=== PATIENT | male | born 1935 | race Asian ===

== ENCOUNTER → 2016-09-05 | Outpatient (CLI) | payer OTHER | LOC: CIMAGING 14:30 | PROVIDERS: ATTEND Family Medicine | DX: M25.511 Pain in right shoulder (principal); M19.011 Primary osteoarthritis, right shoulder | CPT/HCPCS: 73030-PO ==

== ENCOUNTER 2017-01-27 09:07 | Inpatient (IN) | payer OTHER, MEDICAID ==
[2017-01-27] MEDS ORDERED: NS 1,000 ML IV ONE (09:23)
--- NOTE | 2017-01-27 09:32 | CPEKG ---
Heart Rate: 69 RR Interval: 870 P-R Interval: 180 QRSD Interval: 86 QT Interval: 424 QTC Interval: 455 P Milton: 29 QRS Milton: 38 T Wave Milton: 160 EKG Severity - ABNORMAL ECG - EKG Impression: SINUS RHYTHM EKG Impression: PROBABLE LEFT ATRIAL ABNORMALITY EKG Impression: ABNORMAL T, CONSIDER ISCHEMIA, LATERAL LEADS Electronically Signed By: Surinder Peña 30-Jan-2017 16:29:22
--- NOTE | 2017-01-27 09:40 | EDPHY ---
H & P Time Seen by Provider: 01/27/17 09:09 HPI/ROS: HPI Confusion. 81-year-old male by private vehicle with daughter and family. The family reports that since 8:00 a.m. yesterday morning the patient has been more confused and having hallucinations, seeing things that are not present. They report that he is not able to identify the names of family members which she could just the day before. They report he also has been forgetful. When asked who the president is he does not know this. They report that this was not issue the day before as well. He has had a normal gait. He has complained of pressure in his head and some dizziness which she describes as both mild lightheadedness and vertigo. Onset of the symptoms described by family as yesterday at a.m. as well. No focal weakness or altered sensation in his extremities. 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 He ambulates though at his baseline without assistance. No changes in vision. No other complaints. No history of anticoagulant or anti platelet medications. ROS: Constitutional: No fever, no chills. No weakness. As above. Eyes: No discharge. No changes in vision. ENT: No sore throat. No nasal congestion or rhinorrhea. Respiratory: No cough. No shortness of breath. Cardiac: No chest pain, no palpitations. Gastrointestinal: No abdominal pain, no vomiting, no diarrhea. Genitourinary: No hematuria. No dysuria or increased frequency with urination. Musculoskeletal: No back pain. No neck pain. No myalgias or arthralgias. Skin: No rashes. Neurological: As above. No focal weakness or altered sensation. Past medical history: Prostate cancer, diabetes, hypertension, asthma, hyperlipidemia, as above. Social history: Nonsmoker. Here with family. [place] . No alcohol. Speaks Portuguese only. Translation is through family. Physical Exam: General Appearance: Alert, no distress. This patient is responding to questions appropriately and in full sentences. This patient appears well- hydrated and well-nourished. Eyes: Pupils equal and round at 3-2 mm bilaterally. no pallor or injection. No lid edema, erythema or injection. No photophobia. No nystagmus. ENT, Mouth: Mucous membranes are moist. The pharyngeal tissues are unremarkable. No edema or swelling. No asymmetry suggestive of abscess. No erythema or exudates. No tongue lacerations or abrasions. Respiratory: There are no retractions, lungs are clear to auscultation with good air movement bilaterally. Cardiovascular: Regular rate and rhythm. No murmur. Gastrointestinal: Abdomen is soft and nontender, no masses, bowel sounds normal. No focal tenderness at McBurney's point. No Bah sign. Neurological: Motor sensory function is grossly intact. Cranial nerves are normal. Gait is normal baseline. He is oriented to person and place. Not time. Skin: Warm and dry, no rashes. Musculoskeletal: Neck is supple and nontender. Extremities are symmetrical. All joints range without pain or impingement. Psychiatric: No agitation. No depression. Database: EKG: EKG time is 9:30 a.m.; EKG shows a narrow complex normal sinus rhythm with a ventricular rate of 69. The ME, QRS, QT intervals are within normal limits. There are no ST-T wave changes indicative of ischemic or injury pattern. T- wave inversions noted in lead V4 through V6 and leads 1 and aVL. No evidence of right heart strain. EKG from 2011 does show T-wave inversion in 1 and aVL. Interpreted by me. Imaging: CT head without contrast: Significant for a left-sided thalamic hemorrhage which goes into the left frontal horn of the ventricle. It measured approximately 3 mm x 12 mm. No shift. Results were discussed with staff radiologist Dr. Reyna. Procedures: Emergency department course: IV placed. Patient placed on a manager cardiac. He was started on IV normal saline with 500 cc to be given over the next hour. Vital signs reviewed. Moderately hypertensive. Vital signs otherwise normal. Patient afebrile. EKG performed. 9:50 a.m., patient re-evaluated. No change in his neurologic status. Blood pressure currently 142/105. telemetry monitor shows a narrow complex sinus rhythm with ventricular rate of 66. Patient moved to the resuscitation room. Family informed of my initial interpretation of CT head and the need to transfer the patient to the [facility]. Patient has not received any IV fluid. This order was canceled. 10:10 a.m., spoke with on-call neurosurgeon Dr. Mejia. Case discussed in detail with him. He is requesting admission to the ICU through the hospitalist service. He does not see an indication for immediate surgical management at this time. Supportive care, close blood pressure monitoring and repeat CT head in 6 hours is his recommendation at this time. 10:20 a.m., spoke with hospitalist. Patient accepted for admission to the ICU under the care of the hospitalist service. Admitting physician is Dr. Mckeon. 10:25 a.m., patient re-evaluated. Blood pressure currently 157/97. Patient seems more sleepy. But easy to arouse. He admits to feeling more tired. He is alert and oriented to person and place. Not time. Repeat motor assessment nonfocal. Family informed he will be transferred shortly to the [facility]. All of their questions were answered. 10:40 a.m., patient re-evaluated by myself. No change in neurologic status. Mildly sleepy but easily arousable. Blood pressure currently 151/93. Awaiting ambulance for transfer. 11:00 a.m., patient re-evaluated. No change in neurologic status. Patient transferred to [facility] in stable condition. Differential Diagnosis: The differential diagnosis on this patient includes but is not limited to dementia, Alzheimer's dementia. CVA, TIA, toxic metabolic issue unlikely. This represents a partial list of diagnoses considered. These considerations are based on history, physical exam, past history, reassessment and diagnostic testing. Smoking Status: Never smoked Constitutional: Initial Vital Signs Temperature (C) 36.7 C 01/27/17 09:12 Heart Rate 81 01/27/17 09:12 Respiratory Rate 16 01/27/17 09:12 Blood Pressure 155/111 H 01/27/17 09:12 O2 Sat (%) 93 01/27/17 09:12 O2 Delivery Mode Nasal Cannula O2 (L/minute) 2 Allergies/Adverse Reactions: azithromycin Allergy (Verified 01/27/17 09:42) metal Allergy (Uncoded 01/27/17 09:42) Home Medications: Medication Instructions Recorded metFORMIN HCL [Glucophage 500 mg 500 mg PO 01/23/11 (*)] Albuterol 11/01/15 SIMVASTATIN 11/01/15 Losartan Potassium 01/27/17 Toprol Xl 50 mg (*) 01/27/17 Medical Decision Making - Diagnostics Imaging Results: Imaging Impressions Head CT 01/27/17 09:24 Impression: 1. Acute left thalamic and intraventricular hemorrhage measuring 3 x 1.2 x 2.3 cm emanating from the ventral aspect of the left thalamus consistent with a hypertensive hemorrhage. 2. Atrophy and severe microvascular ischemic disease. 3. No midline shift, hydrocephalus, or herniation. 4. Cerebrovascular atherosclerosis. Findings and recommendations discussed with Emergency Department physician, Lexa Navas M.D. at 1000 hours on January 27, 2017. Final report concurs with initial preliminary interpretation. - Data Points Laboratory Results: Laboratory Results 01/27/17 09:37 01/27/17 09:37 01/27/17 01/27/17 01/27/17 09:53 09:37 09:37 WBC RBC Hgb Hct MCV MCH MCHC RDW Plt Count MPV Neut % (Auto) Lymph % (Auto) Franklin % (Auto) Eos % (Auto) Baso % (Auto) Nucleat RBC Rel Count Absolute Neuts (auto) Absolute Lymphs (auto) Absolute Monos (auto) Absolute Eos (auto) Absolute Basos (auto) Absolute Nucleated RBC Immature Gran % Immature Gran # PT 13.6 SEC SEC (12.0-15.0) INR 1.07 (0.83-1.16) APTT 30.1 SEC SEC (23.0-38.0) Sodium Potassium Chloride Carbon Dioxide Anion Gap BUN Creatinine Estimated GFR Glucose Calcium Total Bilirubin Conjugated Bilirubin Unconjugated Bilirubin AST ALT Alkaline Phosphatase Ammonia Pending Total Protein Albumin TSH Specimen Hemolysis Ethyl Alcohol < 10 mg/dL mg/dL (0-10) 01/27/17 01/27/17 09:37 09:37 WBC 4.35 10^3/uL 10^3/uL (3.80-9.50) RBC 4.89 10^6/uL 10^6/uL (4.40-6.38) Hgb 15.1 g/dL g/dL (13.7-17.5) Hct 44.7 % % (40.0-51.0) MCV 91.4 fL fL (81.5-99.8) MCH 30.9 pg pg (27.9-34.1) MCHC 33.8 g/dL g/dL (32.4-36.7) RDW 14.0 % % (11.5-15.2) Plt Count 141 10^3/uL L 10^3/uL (150-400) MPV 9.0 fL fL (8.7-11.7) Neut % (Auto) 53.6 % % (39.3-74.2) Lymph % (Auto) 33.6 % % (15.0-45.0) Franklin % (Auto) 9.4 % % (4.5-13.0) Eos % (Auto) 2.5 % % (0.6-7.6) Baso % (Auto) 0.7 % % (0.3-1.7) Nucleat RBC Rel Count 0.0 % % (0.0-0.2) Absolute Neuts (auto) 2.33 10^3/uL 10^3/uL (1.70-6.50) Absolute Lymphs (auto) 1.46 10^3/uL 10^3/uL (1.00-3.00) Absolute Monos (auto) 0.41 10^3/uL 10^3/uL (0.30-0.80) Absolute Eos (auto) 0.11 10^3/uL 10^3/uL (0.03-0.40) Absolute Basos (auto) 0.03 10^3/uL 10^3/uL (0.02-0.10) Absolute Nucleated RBC 0.00 10^3/uL 10^3/uL (0-0.01) Immature Gran % 0.2 % % (0.0-1.1) Immature Gran # 0.01 10^3/uL 10^3/uL (0.00-0.10) PT INR APTT Sodium 144 mEq/L mEq/L (134-144) Potassium 4.2 mEq/L mEq/L (3.5-5.2) Chloride 108 mEq/L mEq/L (97-110) Carbon Dioxide 24 mEq/l mEq/l (22-31) Anion Gap 12 mEq/L mEq/L (8-16) BUN 18 mg/dL mg/dL (7-23) Creatinine 0.8 mg/dL mg/dL (0.7-1.3) Estimated GFR > 60 Glucose 110 mg/dL H mg/dL (70-100) Calcium 8.8 mg/dL mg/dL (8.5-10.4) Total Bilirubin 1.3 mg/dL mg/dL (0.1-1.4) Conjugated Bilirubin 0.3 mg/dL mg/dL (0.0-0.5) Unconjugated Bilirubin 1.0 mg/dL mg/dL (0.0-1.1) AST 30 IU/L IU/L (17-59) ALT 39 IU/L IU/L (21-72) Alkaline Phosphatase 48 IU/L IU/L (38-126) Ammonia Total Protein 7.3 g/dL g/dL (6.3-8.2) Albumin 4.0 g/dL g/dL (3.5-5.0) TSH 4.140 uIU/mL uIU/mL (0.465-4.680) Specimen Hemolysis Cancelled Ethyl Alcohol Cancelled Medications Given: Discontinued Medications Sodium Chloride (Ns) 1,000 mls @ 0 mls/hr IV EDNOW ONE; Wide Open PRN Reason: Protocol Stop: 01/27/17 09:24 Last Admin: 01/27/17 10:15 Dose: Not Given Departure - Departure Disposition: [facility] Inpatient Acute Clinical Impression: Confusion, Cerebral hemorrhage, nontraumatic, Hypertension Referrals: Estrellita Proctor MD [Primary Care Provider] - As per Instructions
[2017-01-27 10:10] LABS: % IMMATURE GRANULYOCYTES 0.2 % (0.0-1.1); ABSOLUTE IMMATURE GRANULOCYTES 0.01 10^3/uL (0.00-0.10); ADD DIFF? NO; ADD MORPH? NO; ADD SCAN? NO; ATYPICAL LYMPHOCYTE FLAG 0 (0-99); FRAGMENT RBC FLAG 0 (0-99); HEMATOCRIT 44.7 % (40.0-51.0); HEMOGLOBIN 15.1 g/dL (13.7-17.5); LEFT SHIFT FLG 0 (0-99); LIPEMIA HEMOLYSIS FLAG 90 (0-99); MEAN CELL HEMOGLOBIN 30.9 pg (27.9-34.1); MEAN CELL HEMOGLOBIN CONCENTR. 33.8 g/dL (32.4-36.7); MEAN CELL VOLUME 91.4 fL (81.5-99.8); PLATELET CLUMPS FLAG 0 (0-99); PLATELET COUNT 141 10^3/uL (150-400); RED BLOOD CELL COUNT 4.89 10^6/uL (4.40-6.38)
[2017-01-27 10:19] LABS: APTT 30.1 SEC (23.0-38.0); INR 1.07 (0.83-1.16); PROTIME(PATIENT) 13.6 SEC (12.0-15.0)
[2017-01-27 10:22] LABS: ALANINE AMINOTRANSFERASE 39 IU/L (21-72); ALKALINE PHOSPHATASE 48 IU/L (38-126); ANION GAP 12 mEq/L (8-16); ASPARTATE AMINOTRANSFERASE 30 IU/L (17-59); BILIRUBIN,TOTAL 1.3 mg/dL (0.1-1.4); BILIRUBIN-CONJUGATED 0.3 mg/dL (0.0-0.5); CALCIUM 8.8 mg/dL (8.5-10.4); CARBON DIOXIDE 24 mEq/l (22-31); CHLORIDE 108 mEq/L (97-110); CREATININE 0.8 mg/dL (0.7-1.3); GLOMERULAR FILTRATION RATE > 60; GLUCOSE 110 mg/dL (70-100); POTASSIUM 4.2 mEq/L (3.5-5.2); SODIUM 144 mEq/L (134-144); TOTAL PROTEIN 7.3 g/dL (6.3-8.2)
[2017-01-27 11:04] LABS: ETHANOL SERUM < 10 mg/dL (0-10)
[2017-01-27] MEDS ORDERED: ONDANSETRON 4 MG/2 ML VIAL IVP PRN (11:13)
[2017-01-27] MEDS ORDERED: ONDANSETRON DISINTEGRATING 4 MG TAB PO PRN (11:13)
[2017-01-27] MEDS ORDERED: NS 1,000 ML IV SCH (11:15)
[2017-01-27] MEDS ORDERED: hydrALAZINE 20 MG/ML VIAL IVP PRN (12:28)
[2017-01-27] MEDS ORDERED: niCARdipine/NACL 200 ML IV SCH (12:30)
[2017-01-27] MEDS ORDERED: CAPSAICIN 0.025% CREAM TP PRN (13:25)
[2017-01-27] MEDS ORDERED: ALBUTEROL 200 PUFFS/18 GM MDI IH PRN (13:25)
--- NOTE | 2017-01-27 13:46 | GCON ---
[f rep st] CONSULTATION NEUROSURGERY CONSULTATION CHIEF COMPLAINT: Intracranial hemorrhage. HISTORY OF PRESENT ILLNESS: The patient is an 81-year-old male patient who was brought to the emerg ency room by private vehicle with his daughter and family. The patient reported that since 8 a.m. he had been more confused, having some hallucinations and seeing things that were not actual ly present. He was not able to correctly identify names of family members which he was able to do t he day prior. He was unable to tell me who the president is. He has had normal gait. He complaine d of pressure in his head and some dizziness with some vertigo. He has a left lower leg amputation from a traumatic injury from the [place], but he normally ambulates as baseline without assistan ce. He was evaluated in the emergency room and underwent a CT of the head without contrast. This d emonstrated a left-sided thalamic hemorrhage that communicated into the ventricle, measured 3 mm x 1 2 mm. He was subsequently transferred to the ICU, admitted to the Medicine service and Neurosurgery was consulted. Currently the patient is resting in bed. He does not speak Slovenian. He has a Performance Indicator ly member at the bedside. He denies any pain. He does not take any anticoagulant or anti-platelet medications. REVIEW OF SYSTEMS: Please see above mentioned in the HPI. PAST MEDICAL HISTORY: Patient has a history of prostate cancer, diabetes, hypertension, asthma, hyp erlipidemia. He has a prior left [id number]-mxlt amputation. SOCIAL HISTORY: The patient is a nonsmoker. He is a [place] . He is here with his fami ly, speaks Bahraini. His family is assisting with translation. FAMILY HISTORY: He has several living family members. PHYSICAL EXAMINATION: VITAL SIGNS: Blood pressure 150/88, heart rate 60, respirations 16, O2 satur ation is 92% on 2 L of oxygen via nasal cannula. Last temperature is 36.7. GENERAL: This is a wel l-developed, well-nourished elderly male patient in no acute distress. HEAD: Normocephalic and atr aumatic. Cranial nerves 2-12 are grossly intact. Patient's eyes are PERRLA. His extraocular movem ents are intact. His sclerae are anicteric. NEUROLOGIC: He does have some difficulty following co mmands with his extraocular movements, however, they do appear intact. I think this is likely relat ed to the language barrier. His tongue protrudes midline. His palate and uvula elevate symmetrical ly. He has a symmetric shoulder shrug bilaterally. He has intact sensation over his face. Motor e xam showed bilateral upper extremities as 5/5 for deltoid, triceps, biceps and hand e commerce manager and also 5/ 5 in 5 for right lower extremity including hip flexion, flexion and extension of the knee and planta r and dorsiflexion. Left hip flexion is 5/5 as well. The patient's exam does seem to be somewhat e ffort limited. LABORATORY: White blood cells 4.35, red blood cells 4.89, hemoglobin 15.1, hematocrit 44.7, RDW 14, platelet count 141. PT 13.6, INR 1.07, APTT is 30.1. Sodium 144, potassium 4.2, chloride 108, car bon dioxide 24, anion gap 12, BUN 18, creatinine 0.8, GFR greater than 60, glucose 110, calcium 8.8, total bilirubin 1.3, conjugated bilirubin 0.3, unconjugated bilirubin 1.0. AST 30, ALT 39, alk siena s 48, ammonia 16, total protein 7.3, albumin 4.0. TSH 4.140. IMAGING: CT of the head without contrast, acute left thalamic and intraventricular hemorrhage measu ring 3 x 1.2 x 2.3 cm emanating from the ventral aspect of the left thalamus consistent with a hyper tensive hemorrhage. Atrophy and severe microvascular ischemic disease. No midline shift, hydroceph alus or herniation. Cerebrovascular atherosclerosis. IMPRESSION: This is an 81-year-old male patient with a thalamic hemorrhage. PLAN: The patient has been admitted to the Medicine service. He is currently in the ICU. At this time, he is scheduled to undergo an MR angiogram 4 hours from the time of his last head CT to [facility] r evaluate this hemorrhage. Given the location of the hemorrhage, patient will not require any anti -seizure medications. However, we would like to keep his blood pressure below a systolic of 140 and I have given orders for hydralazine and also nicardipine if needed. The patient should continue wi th q.1 hour neurologic checks. While he is admitted, he should work with Physical Therapy, Occupati onal Therapy, and also Speech Therapy. We will continue to evaluate the patient. Should he have an y sudden neurologic change, please notify the Neurosurgery service. Please contact Neurosurgery wit h any additional questions or concerns. The patient was seen by Dr. Mota today at approximately 1 2 p.m. /[id number]/MODL
--- NOTE | 2017-01-27 14:01 | GHP ---
[f rep st] HISTORY AND PHYSICAL DATE OF ADMISSION: 01/27/2017 CHIEF COMPLAINT: Confusion and dizziness. HISTORY OF PRESENT ILLNESS: An 81-year-old male with a history of hypertension, hyperlipidemia, and prediabetes, who presents with 24 hours of noted confusion by family and dizziness. The patient wa s in his normal state of health on 01/25/2017, eating, drinking, ambulating normally. The morning o f 01/26, the patient awoke and was noted by family at the morning meal to be confused and perseverat ing about loved ones and old relatives being present and speaking to him when nobody was around him in the room. The patient then noted dizziness when rising to ambulate to his garden, which he typic ally does every day without difficulty. The patient's symptoms did worsen through the course of the day, prompting his family to bring him for medical evaluation today. In the ICU, the patient is denying any chest pain or shortness of breath. He denies palpitations. He is experiencing a headache that he describes as frontal bilaterally. Denies any vision changes o r diplopia. Denies any dysphagia. Denies any abdominal discomfort or nausea, although he has not e aten food today. Denies any diarrhea, dysuria, subjective fevers or chills. He has amputation of t he left lower extremity. He does not note any edema, myalgias or arthralgias of his other extremiti es. The patient also denies any numbness or tingling at this time and/or areas of weakness. PAST MEDICAL HISTORY: 1. Hypertension. 2. Hyperlipidemia. 3. Prediabetes. 4. Status post a traumatic left amputation in [place]. 5. Asthma. 6. Prostate cancer. SOCIAL HISTORY: Patient lives with the family. Does not smoke, drink or use illicit drugs. FAMILY HISTORY: Negative for a stoke. ADVANCED DIRECTIVES: The patient wishes to be do not resuscitate. His son and daughter would be [facility] [place] medical decision makers. REVIEW OF SYSTEMS: A 10-point review of systems is negative with the exception of that reported in the HPI. PHYSICAL EXAMINATION: VITAL SIGNS: Blood pressure 151/93, heart rate 64, respiratory rate 18, satu rating 97% on 2 L, afebrile, 36.7. GENERAL: This is a healthy-appearing elderly male lying flat in bed. HEENT: Exam is notable for dry mucous membranes. Eye exam is negative for any icterus. CARDIAC: Patient is regular rate and rhythm. A quiet systolic murmur is heard best at the left upp er sternal border. PULMONARY: Good respiratory effort. Clear to auscultation bilaterally. GASTROINTESTINAL: Positive bowel sounds. ABDOMEN: Soft and nontender in all 4 quadrants. MUSCULOSKELETAL: Patient has a [id number] amp utation on the left. Stump is without excoriation or swelling. The right lower extremity has no ed socorro. SKIN: Exam is negative for any rashes. NEUROLOGIC: Patient is alert and oriented x3. Strength appears 4/5 in bilateral upper extremities that is symmetric. Right lower extremity is 5/5. Sensation intact throughout. LABORATORY DATA: White count 4.3, hematocrit 44.7, platelets of 141. Sodium 144, creatinine 0.8, g lucose of 110. Noncontrast CT of the head, which I personally reviewed and interpreted, shows a left-sided thalamic and intraventricular hemorrhage. EKG, which I personally reviewed and interpreted, shows sinus rhy thm, normal axis. Normal intervals with inverted T-waves lead 1 and V3 through V6. ASSESSMENT AND PLAN: This is an 81-year-old male presenting with confusion and dizziness. 1. Acute left thalamic and intraventricular hemorrhage. The patient is not on antiplatelet agents or blood thinners as an outpatient. Does have a history of hypertension; this is presumed hypertens bakari in nature. The patient is being admitted to the intensive care unit for close neurologic monito ring and blood pressure control. Currently presenting with adequately controlled blood pressures. Neurosurgery and Neurology have been consulted and will follow along. We have ordered MRI and MRA o f the brain, PT/OT and Speech Therapy for evaluation. 2. Hypertension. Can continue patient's home medications when reconciled. Again, can use IV drips for tighter control. 3. Hyperlipidemia. I have added a lipid panel to a.m. labs. 4. Prediabetes. Patient had a blood glucose of 110 at presentation. Will continue to monitor on t he BASIC METABOLIC PROFILE. Will not add sliding scale insulin at this time as we want to avoid hyp oglycemia. Have sent a hemoglobin A1c. Will hold the patient's metformin, as he will undoubtedly r equire additional imaging, potentially with contrast. 5. Prophylaxis. Lovenox is contraindicated in the setting of acute intracerebral bleeding. 6. Diet. N.p.o. until cleared by Speech Therapy. DISPOSITION: I expect greater than 2 midnights as the patient is elderly, presenting with acute int racerebral and intraventricular bleed requiring close neurologic evaluation, monitoring and care. I have discussed the case with Neurology. They will consult today and make additional recommendation s. /[id number]/MODL
--- NOTE | 2017-01-27 14:47 | NEUROPROG ---
Assessment: [id number] CC: Intracranial Hemorrhage HPI: This patient was initially seen 01/27/17 as an inpatient [facility]. The patient reported yesterday he noted confusion and head pain. He presented for evaluation today and was noted on head CT to have a left thalamic and ventricular hemorrhage in a hypertensive location. He was admitted to [facility] for further care. He only speaks greenlandic but his daughter was at bedside and provided translation. PMHx: PRCA, DM, HTN, asthma, HLD, left lower leg amputation from [place] SHx: no tobacco FHx: NC ROS: Pt denied acute fever, total vision loss, active severe chest pain, respiratory failure, total body severe rash, total bowel/bladder incontinence, psychosis, active seizures, or active bleeding O: VS reviewed General: Alert Eyes: Fundoscopic exam not able to visualize optic disks CV: Heart RRR, no murmur, no carotid bruit Lungs: Clear to auscultation bilaterally, no rhonchi or rales Neuro: - Mental: . Oriented x person but not place or date . concentration appears normal . speech fluency/comprehension normal . memory appears reduced . fund of knowledge appears reduced - Cranial Nerves: . II: PERRL, VFFTC . III/IV/: EOMI, no nystagmus, normal smooth pursuits, no Ptosis . V: facial sensation intact to LT . VII: face symmetric to eye closure and smile . VIII: hearing intact to conversation . IX/X: uvula raises symmetrically . XI: SCM 5/5 B/L strength . XII: tongue protrudes midline w/nl strength - Motor: . Tone: normal tone in all 4 extremity . Strength: no pronator drift, strength 5/5 throughout - Reflexes: B/L bic 2/4 - Sensory: all 4 extremity intact to light touch - Coord: [id number] wnl - Gait: deferred Labs: 01/27/17- CBC Plt 141L, Coags wnl, CMP Gluc 110H, Ammonia 16, TSH wnl, Alcohol neg Rads: 01/27/17- Head CT w/o con: Acute left thalamic and intraventricular hemorrhage measuring 3 x 1.2 x 2.3 cm emanating from the ventral aspect of the left thalamus consistent with a hypertensive hemorrhage. Atrophy and severe microvascular ischemic disease. No midline shift, hydrocephalus, or herniation. (I personally visualized the images on 01/27/17) Assessment: 1. Left Thalamic/intraventricular hemorrhage: Given location it is likely hypertensive in origin but recommend brain MRI w/ and w/o con and MRA to exclude vessel abnormality or tumor as bleeding source. 2. HTN Plan: - Agree with plan for neurosurgical consult - Blood pressure guidelines and repeat head CT frequency deferred to neurosurgery - Brain MRI w/ and w/o con and brain MRA - DVT prophy with SCDs until neurosurgery feels additional anti-coagulants is safe 45 minutes of critical care time spent with patient with acute intracranial hemorrhage Objective: Vital Signs Temp Pulse Resp BP Pulse Ox 36.7 C 73 22 H 150/85 H 94 01/27/17 09:12 01/27/17 14:00 01/27/17 14:00 01/27/17 14:00 01/27/17 14:00 PT 13.6 SEC (12.0-15.0) 01/27/17 09:53 INR 1.07 (0.83-1.16) 01/27/17 09:53 Allergies/Adverse Reactions: azithromycin Allergy (Verified 01/27/17 09:42) metal Allergy (Uncoded 01/27/17 09:42)
[2017-01-27] MEDS ORDERED: GADOBUTROL 10 ML VIAL IVP ONE (15:00)
[2017-01-27] MEDS: ACETAMINOPHEN 325 MG TAB PO PRN ×2 (16:37→21:42)
[2017-01-27] MEDS: hydrALAZINE 20 MG/ML VIAL IVP PRN (17:27)
[2017-01-27 18:06] LABS: HEMOGLOBIN A1C 6.6 % (4.0-6.0)
[2017-01-27] MEDS: traMADol 50 MG TAB PO PRN (20:53)
[2017-01-27] MEDS: ATORVASTATIN CALCIUM 10 MG TAB PO SCH (20:53)
[2017-01-27] MEDS: FLUTICASONE HFA 110 MCG MDI IH SCH (22:58)
[2017-01-28] MEDS: hydrALAZINE 20 MG/ML VIAL IVP PRN (00:19)
[2017-01-28 04:52] LABS: % IMMATURE GRANULYOCYTES 0.2 % (0.0-1.1); ABSOLUTE IMMATURE GRANULOCYTES 0.01 10^3/uL (0.00-0.10); ADD DIFF? NO; ADD MORPH? NO; ADD SCAN? NO; ATYPICAL LYMPHOCYTE FLAG 0 (0-99); FRAGMENT RBC FLAG 0 (0-99); HEMOGLOBIN 14.4 g/dL (13.7-17.5); LEFT SHIFT FLG 0 (0-99); LIPEMIA HEMOLYSIS FLAG 80 (0-99); MEAN CELL HEMOGLOBIN 30.8 pg (27.9-34.1); MEAN CELL HEMOGLOBIN CONCENTR. 33.5 g/dL (32.4-36.7); MEAN CELL VOLUME 92.1 fL (81.5-99.8); MEAN PLATELET VOLUME 9.1 fL (8.7-11.7); PLATELET CLUMPS FLAG 0 (0-99); PLATELET COUNT 138 10^3/uL (150-400); RED BLOOD CELL COUNT 4.67 10^6/uL (4.40-6.38); RED CELL DISTRIBUTION WIDTH 13.8 % (11.5-15.2)
[2017-01-28 05:15] LABS: ANION GAP 10 mEq/L (8-16); CARBON DIOXIDE 22 mEq/l (22-31); CHLORIDE 104 mEq/L (97-110); CHOLESTEROL 146 mg/dL (140-220); CHOLESTEROL/HDL RATIO 3.48 RATIO (1.00-4.97); CREATININE 0.7 mg/dL (0.7-1.3); GLOMERULAR FILTRATION RATE > 60; GLUCOSE 99 mg/dL (70-100); HIGH DENSITY LIPOPROTEIN 42 mg/dL (40-65); LDL/HDL RATIO 2.02 RATIO (1.00-3.64); LOW DENSITY LIPOPROTEIN 85 mg/dL (80-100); NON-HIGH DENSITY LIPOPROTEIN 104 mg/dL (90-129); POTASSIUM 4.1 mEq/L (3.5-5.2); SODIUM 136 mEq/L (134-144); TRIGLYCERIDE 95 mg/dL (40-150); VERY LOW DENSITY LIPOPROTEINS 19 mg/dL (8-25)
[2017-01-28] MEDS: traMADol 50 MG TAB PO PRN ×3 (06:27→19:32)
[2017-01-28] MEDS: LOSARTAN POTASSIUM 50 MG TAB PO SCH (08:31)
[2017-01-28] MEDS: ACETAMINOPHEN 325 MG TAB PO PRN ×2 (08:32→16:32)
--- NOTE | 2017-01-28 10:50 | SOAPPROG ---
SOAP Progress Note Assessment/Plan: Assessment: 81 year old with small left thalamic hemorrhage with IVH (no hydrocephalus), MRI shows likely amyloid angiopathy Plan: - doing well, still some dizziness, would monitor another day, then if OK could d/c home tomorrow - discussed amyloid and hydrocephalus with family and discussed the warning signs of increasing headaches, nausea, vomiting, etc. - no need for repeat imaging - neurology following for risk factor management - followup with neurosurgery clinic in 2-3 weeks. 01/28/17 10:48 Subjective: no major complaints Objective: Vital Signs Temp Pulse Resp BP Pulse Ox 36.8 C 81 12 137/96 H 96 01/28/17 08:00 01/28/17 10:00 01/28/17 10:00 01/28/17 10:00 01/28/17 10:00 Laboratory Results 01/28/17 04:30 01/28/17 04:30 01/27/17 01/28/17 01/29/17 05:59 05:59 05:59 Intake Total 1604 360 Output Total 220 Balance 1384 360 PT 13.6 SEC (12.0-15.0) 01/27/17 09:53 INR 1.07 (0.83-1.16) 01/27/17 09:53 AAox3, full strength, no drift, sensation intact - Pending Discharge Pending Discharge Within 24 Hours: Yes Pending Discharge Within 48 Hours: Yes Pending Discharge Date: 01/29/17 Pending Discharge Time: 11:00 ICD10 Worksheet Patient Problems: Problems Problem Status Onset Cerebral hemorrhage, nontraumatic Acute Confusion Acute Hypertension Acute
[2017-01-28] MEDS: FLUTICASONE HFA 110 MCG MDI IH SCH ×2 (11:19→21:45)
--- NOTE | 2017-01-28 12:28 | GCON ---
[f rep st] CONSULTATION CRITICAL CARE CONSULTATION. DATE OF CONSULTATION: 01/28/2017 HISTORY OF PRESENT ILLNESS: This patient is an 81-year-old male with a history of hypertension, who presented with 24 hours of confusion and hallucinations. He was brought to the emergency [facility] and had no other symptoms, but a CT scan showed a cerebral hemorrhage. He has, otherwise, been st able without any recent problems, though his blood pressure control has been suboptimal. PAST MEDICAL HISTORY: 1. Hypertension. 2. Hyperlipidemia. 3. Hyperglycemia. 4. 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 5. Asthma. 6. Prostate cancer. SOCIAL HISTORY: Patient is a nonsmoker. No alcohol or IV drug use. FAMILY HISTORY: Lacks stroke. MEDICATIONS: Include currently Ventolin, Lipitor, Flovent, hydralazine p.r.n., Cozaar, Zofran, tram adol p.r.n. PHYSICAL EXAMINATION: VITAL SIGNS: He is afebrile. Blood pressure is 137/96, heart rate of 81, re spirations 12, oxygen saturation 96% on room air. GENERAL: He is a [place] speaking male who wa s in no apparent distress. He did speak in full sentences through interpretation via his children, and did not use accessory muscles for breathing. HEENT: Pupils equally round and reactive to light, though they were small, about 2-3 mm. Sclerae were noninjected. Nonicteric. Mucous membranes were moist without erythema or exudate. NECK: Supple without adenopathy or jugular vein distention. L UNGS: Breath sounds were clear to auscultation bilaterally without wheeze or rales. HEART: Regula r rate and rhythm without obvious murmur. ABDOMEN: Soft, nontender, nondistended without hepatospl enomegaly. EXTREMITIES: Show no clubbing, cyanosis, or edema on the right. He had a left BKA on t he left without evidence of infection. NEUROLOGIC: Grossly nonfocal. OBJECTIVE DATA: Includes a white count of 4.7, hematocrit 43, platelets of 138. Basic metabolic pa arminda was unremarkable. ASSESSMENT AND PLAN: 1. Left thalamic and intraventricular hemorrhage, thought to be due to hypertension. Appears to be clinically stable. He said he felt a little bit better today, but still has hallucinations. Accord ing to his family, they felt that he was at least quite stable. He did require p.r.n. hydralazine o vernight. 2. Hypertension. As above, we are trying to keep his blood pressure with a systolic less than 140, which is working reasonably well, and he appears to be quite stable at this time. 3. Disposition: Appears to be doing reasonably well and has he has been evaluated by Neurosurgery, and likely is to be discharged tomorrow. /[id number]/MODL
--- NOTE | 2017-01-28 12:38 | NEUROPROG ---
Assessment: [id number] CC: F/U Intracranial Hemorrhage Narrative Summary: This patient was initially seen 01/27/17 as an inpatient [facility]. The patient reported yesterday he noted confusion and head pain. He presented for evaluation today and was noted on head CT to have a left thalamic and ventricular hemorrhage in a hypertensive location. He was admitted to [facility] for further care. He only speaks ethiopian but his daughter was at bedside and provided translation. HPI: F/U 01/28/17. Neurosurgery feels he is doing well and does not plan surgery. Pts family feels he is doing better. No new complaints. Brain MRI did show slightly enlarged bleeding but clinically he is doing well so no surgery planned. Pt found to have amyloid angiopathy as well on MRI. No vessel abnormality, stroke, or tumor seen. PMHx: PRCA, DM, HTN, asthma, HLD, left lower leg amputation from [place] SHx: no tobacco FHx: daughter alive Labs: 01/27/17- CBC Plt 141L, Coags wnl, CMP Gluc 110H, Ammonia 16, TSH wnl, Alcohol neg, H1AC 6.6H, LDL 85 Rads: 01/27/17- Head CT w/o con: Acute left thalamic and intraventricular hemorrhage measuring 3 x 1.2 x 2.3 cm emanating from the ventral aspect of the left thalamus consistent with a hypertensive hemorrhage. Atrophy and severe microvascular ischemic disease. No midline shift, hydrocephalus, or herniation. (I personally visualized the images on 01/27/17) 01/26/17- Brain MRI w/ and w/o con: enlarging left IVH and thalamic HTN hemorrhage, no stroke or tumor seen, probable amyloid angiopathy, mod atrophy, severe CMVD, no enhancing lesions 01/26/17- Brain MRA: no vessel abnormality or significant stenosis Assessment: 1. Probable Hypertensive Left Thalamic/intraventricular hemorrhage: Given location it is likely hypertensive in origin but Brain MRI did suggest underlying amyloid angiopathy which is a risk factor for brain hemorrhage. No tumor, blood vessel abnormality, or stroke seen on MRI/MRA. 2. HTN: excellent blood pressure control going forward is paramount for preventing recurrent hemorrhage 3. Amyloid Angiopathy: pt should avoid medications that increase risk of bleeding if possible Plan: - Agree with neurosurgical consult, no surgery planned - Blood pressure < 140/90 long-term - Avoid anti-platelets and anticoagulation if possible given underlying amyloid angiopathy is risk factor for recurrent brain hemorrhage - Pt will likely discharge tomorrow 35 min spent with patient, majority of time spent counseling on brain hemorrhage and treatment options. Objective: Vital Signs Temp Pulse Resp BP Pulse Ox 36.7 C 91 18 121/85 H 93 01/28/17 11:47 01/28/17 11:47 01/28/17 11:47 01/28/17 11:47 01/28/17 11:47 Laboratory Results 01/28/17 04:30 01/28/17 04:30 01/27/17 01/28/17 01/29/17 05:59 05:59 05:59 Intake Total 1604 600 Output Total 220 Balance 1384 600 PT 13.6 SEC (12.0-15.0) 01/27/17 09:53 INR 1.07 (0.83-1.16) 01/27/17 09:53 Allergies/Adverse Reactions: azithromycin Allergy (Verified 01/27/17 09:42) metal Allergy (Uncoded 01/27/17 09:42)
--- NOTE | 2017-01-28 14:26 | HOSPPROG ---
Hospitalist Progress Note Assessment/Plan: # Acute left thalamic hemorrhagic stroke with intraventricular bleed- exam stable overnight MRI of brain(personally reviewed and interpreted) showed enlarging ventricular bleed- amyloid angiopathy Patient with persistent headache and dizziness- although improved -continue neurologic monitoring - close blood pressure monitoring - PT/OT # hypertension- controlled with systolics in the 130-140s overnight oxygen saturations 95% on RA - continue daily losartan # hyperlipidemia - LDL 85 on admit - will discuss statin therapy with neuro # proph - no blood thinners # diet - regular # dispo- > 2MN as requires close neuro monitoring post - hemorrhagic stroke I have discussed the case with Dr. Mejia from Neurosurgery-if the patient remains stable can be discharged tomorrow with outpatient follow-up Subjective: headache improved but persists Objective: Vital Signs Temp Pulse Resp BP Pulse Ox 36.7 C 91 18 121/85 H 93 01/28/17 11:47 01/28/17 11:47 01/28/17 11:47 01/28/17 11:47 01/28/17 11:47 Laboratory Results 01/28/17 04:30 01/28/17 04:30 01/27/17 01/28/17 01/29/17 05:59 05:59 05:59 Intake Total 1604 600 Output Total 220 Balance 1384 600 PT 13.6 SEC (12.0-15.0) 01/27/17 09:53 INR 1.07 (0.83-1.16) 01/27/17 09:53 - Physical Exam Constitutional: appears nourished Eyes: anicteric sclera Ears, Nose, Mouth, Throat: moist mucous membranes Cardiovascular: regular rate and rhythym Respiratory: no respiratory distress, no rales or rhonchi Gastrointestinal: normoactive bowel sounds Genitourinary: no bladder fullness Skin: warm Musculoskeletal: No asymmetric calves Neurologic: AAOx3 Psychiatric: interacting appropriately, not anxious Lymph, Heme, Immunologic: no cervical LAD ICD10 Worksheet Patient Problems: Problems Problem Status Onset Cerebral hemorrhage, nontraumatic Acute Confusion Acute Hypertension Acute
[2017-01-28] MEDS: ATORVASTATIN CALCIUM 10 MG TAB PO SCH (19:33)
[2017-01-29] MEDS: ACETAMINOPHEN 325 MG TAB PO PRN (00:29)
[2017-01-29 05:28] LABS: ANION GAP 10 mEq/L (8-16); CARBON DIOXIDE 24 mEq/l (22-31); CHLORIDE 105 mEq/L (97-110); CREATININE 0.9 mg/dL (0.7-1.3); GLOMERULAR FILTRATION RATE > 60; GLUCOSE 92 mg/dL (70-100); POTASSIUM 3.9 mEq/L (3.5-5.2); SODIUM 139 mEq/L (134-144)
[2017-01-29 08:32] VITALS: BP 137/90; PULSE 60; RESP 23; TEMP 98.3; O2SAT 93
[2017-01-29] MEDS: LOSARTAN POTASSIUM 50 MG TAB PO SCH (08:36)
--- NOTE | 2017-01-29 08:41 | NEUSURGPN ---
Assessment/Plan: Assessment: 81 year old with small left thalamic hemorrhage with IVH (no hydrocephalus), MRI shows likely amyloid angiopathy Plan: - neuro stable - discussed amyloid and hydrocephalus with family and discussed the warning signs of increasing headaches, nausea, vomiting, etc. - no need for repeat imaging - appreciate neurology following - ok to be discharged from our standpoint - followup with neurosurgery clinic in 2-3 weeks. Subjective: Mild headache, intermittent. Objective: Awake. Alert. PERRL Following commands Strength full at 5/5 Neurosurgery Physical Exam - Vitals, I&O, Labs I and O 01/28/17 01/29/17 01/30/17 05:59 05:59 05:59 Intake Total 1604 700 Output Total 220 Balance 1384 700 Weight 73.6 kg Intake: Oral (ml) 490 700 IV Infused (ml) 1114 Ns 1,000 ml @ 70 mls/hr 1114 IV CONT DEREK Rx#: [id number] Output: Urine (ml) 220 Toilet 220 Other: Intake Quantity Yes Sufficient Number of Voids Toilet 1 1 Number of Stools Toilet 1 1 Vital Signs Temp Pulse Resp BP Pulse Ox 36.8 C 60 23 H 137/90 H 93 01/29/17 08:00 01/29/17 08:00 01/29/17 08:00 01/29/17 08:00 01/29/17 08:00 Laboratory Results 01/28/17 04:30 01/29/17 04:18 ICD10 Worksheet Patient Problems: Problems Problem Status Onset Cerebral hemorrhage, nontraumatic Acute Confusion Acute Hypertension Acute
--- NOTE | 2017-01-29 09:27 | PDIAF ---
- Diagnosis Diagnosis: hemorrhagic stroke Code Status: Do Not Resuscitate - Medication Management Discharge Medications: Medications to Continue on Transfer metFORMIN HCL [Glucophage 500 mg (*)] 500 mg PO DAILY18 01/23/11 [Last Taken ] Albuterol [Proventil Inhaler HFA (*)] 1 puffs IH Q6HRS PRN 11/01/15 [Last Taken Unknown] Simvastatin [Zocor] 20 mg PO HS 11/01/15 [Last Taken 01/26/17] Capsaicin 0.025% 1 lloyd TP QID PRN 01/27/17 [Last Taken Unknown] Carbamide Peroxide [Debrox Ear drops (*)] 5 drop LEFTEAR BID PRN 01/27/17 [Last Taken Unknown] Fluticasone Hfa 110 Mcg [Flovent 110 MCG Hfa MDI (*)] 1 puffs IH BID 01/27/17 [ Last Taken Unknown] Losartan Potassium 100 mg PO DAILY 01/27/17 [Last Taken 01/26/17] metFORMIN HCL [Glucophage 1000 mg] 1,000 mg PO DAILY 01/27/17 [Last Taken ] Discharge Medications: Refer to the Discharge Home Medication list for PRN reason. - Orders Services needed: Home Care, Registered Nurse, Physical Therapy, Occupational Therapy, Speech Language Pathologist Home Care Face to Face: I certify that this patient was under my care and that I had the required [id number] encounter meeting the encounter requirements on the discharge day. My findings support the fact that the patient is homebound as defined in CMS Chapter 7 Medicare Benefits Manual 30.1.1, The condition of the patient is such that there exists a normal inability to leave home and consequently, leaving home would require a considerable and taxing effort. Diet Recommendation: cardiac -low fat low salt Diet Texture: Regular Texture Diet, Thin Liquids, Meds Whole w/Liquids - Follow Up Care Current Providers and Referrals: Leonides Mejia MD [Medical Doctor] - (follow up 2-3 weeks) Estrellita Proctor MD [Primary Care Provider] - As per Instructions
[2017-01-29] MEDS: FLUTICASONE HFA 110 MCG MDI IH SCH (09:30)
--- NOTE | 2017-01-29 15:56 | GDS ---
[f rep st] DISCHARGE SUMMARY DISCHARGE DIAGNOSES: Include: 1. Acute left thalamic hemorrhagic stroke with intraventricular bleed. 2. Hypertension. 3. Hyperlipidemia. HISTORY OF PRESENT ILLNESS: This is an 81-year-old male, who presented on 01/27/2017, with complain ts of confusion and dizziness. For details of patient's initial presentation, please see the Histor y and Physical, dated 01/27/2017. CONSULTATIVE SERVICES: Include: 1. Neurology. 2. Neurosurgery. PROCEDURES: 01/27/2017: Patient had an MRI of the brain that showed acute intraventricular hemorrh age in the left lateral ventricle and findings consistent with amyloid angiopathy, a hypertensive he morrhage of the left thalamus associated with an intraventricular bleed. HOSPITAL COURSE: By issue: 1. Acute hemorrhagic stroke, presumed secondary to hypertension and amyloid angiopathy. The patien t was monitored closely in the intensive care unit, then on the medical floor. He had steady improv ement in his symptoms of headache, dizziness, and confusion. Patient will not be treated with antip latelet agents and/or blood thinners, and will be monitored in the outpatient setting at home by car e including an RN, PT/OT and speech therapy. The patient's blood pressures were appropriately contr olled inside the hospital on 100 of losartan daily, which is his home medication. This will be cont inued going forward. 2. Hypertension: Patient's systolic blood pressures never were inappropriately high during this ho spital stay. They peaked in the 150s, which was at presentation. On the morning of discharge, bloo d pressures ranged between 110 and 130 on losartan. 3. Hyperlipidemia: Patient was continued on his Zocor 20 mg in the evenings. 4. Diabetes: Patient had his metformin held while inpatient. It is resumed at discharge. He can follow with his outpatient primary care for ongoing management. DISCHARGE MEDICATIONS: Please reference med rec printed on 01/29/2017. FOLLOWUP APPOINTMENTS: Include: 1. Primary care provider as needed for long-term management of his medical comorbidities. 2. Dr. Mejia, from neurosurgery, in the next 2-4 weeks post disposition. They have been instructed to return to the emergency department for any worsening headache, dizziness, or mental status kerns es. I spent greater than 30 minutes in the planning and coordination of this discharge. /[id number]/MODL
== END 2017-01-29 12:03 | disposition home health service (06) | DRG 66 ==
LOC: CED 09:07 → CEDHOLD 10:20 → F2N 11:26 → F3N 01-28 11:33
PROVIDERS: ADMIT Hospitalist; ATTEND Hospitalist
DX: I61.8 Other nontraumatic intracerebral hemorrhage (principal); I10 Essential (primary) hypertension; E78.5 Hyperlipidemia, unspecified; E11.9 Type 2 diabetes mellitus without complications; Z79.84 Long term (current) use of oral hypoglycemic drugs; Z89.512 Acquired absence of left leg below knee; Z85.46 Personal history of malignant neoplasm of prostate
CPT/HCPCS: 70450-PO; 80048-PO; 80076-PO; 84443-PO; 85025-PO; 85610-PO; 85730-PO; 92507-GN; 92610-GN; 97116-GP; 97161-GP; 97165-GO; 97530-GP; A9585; G0480; G8978-GP-CJ; G8979-GP-CI; G8980-GP-CI; G8987-GO-CI; G8988-GO-CI; G8989-GO-CI; G8996-GN-CH; G8997-GN-CH; G8998-GN-CH; G9168-GN-CJ; G9169-GN-CI; J0360

== ENCOUNTER 2017-02-06 12:59 | Emergency (ER) | payer OTHER, MEDICAID ==
--- NOTE | 2017-02-06 13:10 | EDPHY ---
H & P Stated Complaint: D/C recently post ICH;c/o L sided h/a,blurry and double vision Time Seen by Provider: 02/06/17 13:10 HPI/ROS: CHIEF COMPLAINT: [ ] HISTORY OF PRESENT ILLNESS: [Need 4: Location, Duration, Severity, Quality, Context, Timing Modifying Factors, Associated S&S] REVIEW OF SYSTEMS: A comprehensive 10 point review of systems is otherwise negative aside from elements mentioned in the history of present illness. Source: Patient - Personal History Current Tetanus Diphtheria and Acellular Pertussis (TDAP): Yes - Medical/Surgical History Hx Asthma: Yes Hx Chronic Respiratory Disease: No Hx Diabetes: Yes Hx Cardiac Disease: No Hx Renal Disease: No Hx Cirrhosis: No Hx Alcoholism: No Hx HIV/AIDS: No Hx Splenectomy or Spleen Trauma: No Other PMH: HTN,prostate CA,left bna,abnornormal ecg,asthma,diabetes type 2, enlarged aorta,cholesterol,vitamin d deficency. 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 [facility] Jan 2017 - Social History Smoking Status: Never smoked - Physical Exam Exam: General Appearance: [Alert, no distress] Eyes: [Pupils equal and round no pallor or injection] ENT, Mouth: [Mucous membranes moist] Respiratory: [There are no retractions, lungs are clear to auscultation] Cardiovascular: [Regular rate and rhythm] Gastrointestinal: [Abdomen is soft and nontender, no masses, bowel sounds normal] Neurological: [A&O, normal motor function, normal sensory exam, normal cranial nerves] Skin: [Warm and dry, no rashes] Musculoskeletal: [Neck is supple nontender] Extremities: [symmetrical, full range of motion] Psychiatric: [Patient is oriented X 3, there is no agitation] Constitutional: Initial Vital Signs Temperature (C) 36.6 C 02/06/17 13:01 Heart Rate 89 02/06/17 13:01 Respiratory Rate 18 02/06/17 13:01 Blood Pressure 116/90 H 02/06/17 13:01 O2 Sat (%) 91 L 02/06/17 13:01 O2 Delivery Mode Room Air Allergies/Adverse Reactions: azithromycin Allergy (Verified 02/06/17 13:00) metal Allergy (Uncoded 01/27/17 09:42) Home Medications: Medication Instructions Recorded metFORMIN HCL [Glucophage 500 mg 500 mg PO DAILY18 01/23/11 (*)] Albuterol [Proventil Inhaler HFA 1 puffs IH Q6HRS PRN 11/01/15 (*)] Simvastatin [Zocor] 20 mg PO HS 11/01/15 Capsaicin 0.025% 1 lloyd TP QID PRN 01/27/17 Carbamide Peroxide [Debrox Ear 5 drop LEFTEAR BID PRN 01/27/17 drops (*)] Fluticasone Hfa 110 Mcg [Flovent 1 puffs IH BID 01/27/17 110 MCG Hfa MDI (*)] Losartan Potassium 100 mg PO DAILY 01/27/17 metFORMIN HCL [Glucophage 1000 mg] 1,000 mg PO DAILY 01/27/17 Escitalopram Oxalate [Lexapro] 5 mg PO 02/06/17 traMADol [Ultram 50 mg (*)] 50 mg PO 02/06/17 Departure - Departure Referrals: Hernando Shah DO [Primary Care Provider] - As per Instructions
--- NOTE | 2017-02-06 13:25 | EDPHY ---
H & P Stated Complaint: D/C recently post ICH;c/o L sided h/a,blurry and double vision Time Seen by Provider: 02/06/17 13:10 HPI/ROS: CHIEF COMPLAINT: Blurry vision, worsening headache, fatigue HISTORY OF PRESENT ILLNESS: The patient has a history of a intracranial hemorrhage. He was hospitalized approximately week ago. He was discharged home and has been recovering uneventfully. The patient has had a persistent headache since his ICH however it has worsened over the past several days. The patient is also had intermittent blurry vision and reported subjective diplopia and generalized fatigue. He has no complaints of acute numbness or weakness. He has no complaints of fever, cough, congestion or diarrhea. REVIEW OF SYSTEMS: A comprehensive 10 point review of systems is otherwise negative aside from elements mentioned in the history of present illness. Source: Patient, Family - Personal History Current Tetanus Diphtheria and Acellular Pertussis (TDAP): Yes - Medical/Surgical History Hx Asthma: Yes Hx Chronic Respiratory Disease: No Hx Diabetes: Yes Hx Cardiac Disease: No Hx Renal Disease: No Hx Cirrhosis: No Hx Alcoholism: No Hx HIV/AIDS: No Hx Splenectomy or Spleen Trauma: No Other PMH: HTN,prostate CA,left bna,abnornormal ecg,asthma,diabetes type 2, enlarged aorta,cholesterol,vitamin d deficency. 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 ICH Jan 2017 - Social History Smoking Status: Never smoked - Physical Exam Exam: General Appearance: Elderly male, somnolent but arousable Eyes: Pupils equal and round no pallor or injection, extraocular eye movements intact ENT, Mouth: Mucous membranes moist Respiratory: There are no retractions, lungs are clear to auscultation Cardiovascular: Regular rate and rhythm Gastrointestinal: Abdomen is soft and nontender, no masses, bowel sounds normal Neurological: A&O, normal motor function, normal sensory exam, normal cranial nerves Skin: Warm and dry, no rashes Musculoskeletal: Neck is supple nontender Extremities: symmetrical, full range of motion Constitutional: Initial Vital Signs Temperature (C) 36.6 C 02/06/17 13:01 Heart Rate 89 02/06/17 13:01 Respiratory Rate 18 02/06/17 13:01 Blood Pressure 116/90 H 02/06/17 13:01 O2 Sat (%) 91 L 02/06/17 13:01 O2 Delivery Mode Room Air Allergies/Adverse Reactions: azithromycin Allergy (Verified 02/06/17 13:00) metal Allergy (Uncoded 01/27/17 09:42) Home Medications: Medication Instructions Recorded metFORMIN HCL [Glucophage 500 mg 500 mg PO DAILY18 01/23/11 (*)] Albuterol [Proventil Inhaler HFA 1 puffs IH Q6HRS PRN 11/01/15 (*)] Simvastatin [Zocor] 20 mg PO HS 11/01/15 Capsaicin 0.025% 1 lloyd TP QID PRN 01/27/17 Carbamide Peroxide [Debrox Ear 5 drop LEFTEAR BID PRN 01/27/17 drops (*)] Fluticasone Hfa 110 Mcg [Flovent 1 puffs IH BID 01/27/17 110 MCG Hfa MDI (*)] Losartan Potassium 100 mg PO DAILY 01/27/17 metFORMIN HCL [Glucophage 1000 mg] 1,000 mg PO DAILY 01/27/17 Escitalopram Oxalate [Lexapro] 5 mg PO 02/06/17 traMADol [Ultram 50 mg (*)] 50 mg PO 02/06/17 Medical Decision Making - Diagnostics Imaging Results: Imaging Impressions Head CT 02/06/17 13:11 Impression: 1. Nearly completely resolved intraventricular hemorrhage with no definite acute findings. 2. Diffuse cerebral atrophy with periventricular and subcortical low attenuation consistent with chronic microvascular ischemic gliosis. Findings discussed with Alek Mathis on February 06, 2017 at 1357 hours. ED Course/Re-evaluation: Patient presents to the ED with worsening headache and intermittent visual complaints following a history of intracranial hemorrhage approximately week ago. The patient was noted to be neurologically intact. I see no obvious visual field deficits or abnormal eye movements on exam. His NIH stroke scale is 0. The patient was taken for a stat noncontrast CT scan of his head given his complaints of headache which demonstrates near complete resolution of his ICH. The patient's laboratory studies including CBC, chemistries and urinalysis are all within normal limits. The patient underwent serial examinations in the ED by myself over a 2 hour period. 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 There is nothing to suggest an acute infection or metabolic abnormality. I do feel would be reasonable to have the patient continue to follow up with his primary care provider as scheduled. Differential Diagnosis: Differential diagnosis considered includes metabolic abnormality, urinary tract infection, medication side effect, intracranial hemorrhage, stroke, TIA - Data Points Laboratory Results: Laboratory Results 02/06/17 13:15 02/06/17 13:15 02/06/17 02/06/17 02/06/17 14:51 13:15 13:15 WBC 4.93 10^3/uL 10^3/uL (3.80-9.50) RBC 5.00 10^6/uL 10^6/uL (4.40-6.38) Hgb 15.6 g/dL g/dL (13.7-17.5) Hct 46.4 % % (40.0-51.0) MCV 92.8 fL fL (81.5-99.8) MCH 31.2 pg pg (27.9-34.1) MCHC 33.6 g/dL g/dL (32.4-36.7) RDW 13.4 % % (11.5-15.2) Plt Count 143 10^3/uL L 10^3/uL (150-400) MPV 9.6 fL fL (8.7-11.7) Neut % (Auto) 55.5 % % (39.3-74.2) Lymph % (Auto) 30.0 % % (15.0-45.0) [place] % (Auto) 10.1 % % (4.5-13.0) Eos % (Auto) 3.4 % % (0.6-7.6) Baso % (Auto) 0.8 % % (0.3-1.7) Nucleat RBC Rel Count 0.0 % % (0.0-0.2) Absolute Neuts (auto) 2.73 10^3/uL 10^3/uL (1.70-6.50) Absolute Lymphs (auto) 1.48 10^3/uL 10^3/uL (1.00-3.00) Absolute Monos (auto) 0.50 10^3/uL 10^3/uL (0.30-0.80) Absolute Eos (auto) 0.17 10^3/uL 10^3/uL (0.03-0.40) Absolute Basos (auto) 0.04 10^3/uL 10^3/uL (0.02-0.10) Absolute Nucleated RBC 0.00 10^3/uL 10^3/uL (0-0.01) Immature Gran % 0.2 % % (0.0-1.1) Immature Gran # 0.01 10^3/uL 10^3/uL (0.00-0.10) Sodium 142 mEq/L mEq/L (134-144) Potassium 4.5 mEq/L mEq/L (3.5-5.2) Chloride 106 mEq/L mEq/L (97-110) Carbon Dioxide 21 mEq/l L mEq/l (22-31) Anion Gap 15 mEq/L mEq/L (8-16) BUN 23 mg/dL mg/dL (7-23) Creatinine 0.9 mg/dL mg/dL (0.7-1.3) Estimated GFR > 60 Glucose 122 mg/dL H mg/dL (70-100) Calcium 9.7 mg/dL mg/dL (8.5-10.4) Urine Color YELLOW Urine Appearance HAZY Urine pH 5.0 (5.0-7.5) Ur Specific [place] 1.025 (1.002-1.030) Urine Protein NEGATIVE (NEGATIVE) Urine Ketones NEGATIVE (NEGATIVE) Urine Blood NEGATIVE (NEGATIVE) Urine Nitrate NEGATIVE (NEGATIVE) Urine Bilirubin NEGATIVE (NEGATIVE) Urine Urobilinogen NEGATIVE EU EU (0.2-1.0) Ur Leukocyte Esterase NEGATIVE (NEGATIVE) Urine RBC 1-3 /hpf /hpf (0-3) Urine WBC 1-3 /hpf /hpf (0-3) Ur Epithelial Cells NONE SEEN /lpf /lpf (NONE-1+) Urine Mucus TRACE /lpf /lpf (NONE-1+) Urine Glucose NEGATIVE (NEGATIVE) Departure - Departure Disposition: Home, Routine, Self-Care Clinical Impression: Headache, History of intracranial hemorrhage Condition: Good Instructions: Acute Headache (ED) Additional Instructions: 1. Please follow up with your primary care provider as scheduled. 2. Please return to the ED for any progressively worsening symptoms, fever or other concerns. Referrals: Hernando Shah DO [Primary Care Provider] - As per Instructions
[2017-02-06 14:13] LABS: % IMMATURE GRANULYOCYTES 0.2 % (0.0-1.1); ABSOLUTE IMMATURE GRANULOCYTES 0.01 10^3/uL (0.00-0.10); ADD DIFF? NO; ADD MORPH? NO; ADD SCAN? NO; ATYPICAL LYMPHOCYTE FLAG 10 (0-99); FRAGMENT RBC FLAG 0 (0-99); HEMATOCRIT 46.4 % (40.0-51.0); HEMOGLOBIN 15.6 g/dL (13.7-17.5); LEFT SHIFT FLG 0 (0-99); LIPEMIA HEMOLYSIS FLAG 80 (0-99); MEAN CELL HEMOGLOBIN 31.2 pg (27.9-34.1); MEAN CELL HEMOGLOBIN CONCENTR. 33.6 g/dL (32.4-36.7); MEAN CELL VOLUME 92.8 fL (81.5-99.8); MEAN PLATELET VOLUME 9.6 fL (8.7-11.7); PLATELET CLUMPS FLAG 0 (0-99); PLATELET COUNT 143 10^3/uL (150-400); RED CELL DISTRIBUTION WIDTH 13.4 % (11.5-15.2)
[2017-02-06 14:17] LABS: ANION GAP 15 mEq/L (8-16); CALCIUM 9.7 mg/dL (8.5-10.4); CARBON DIOXIDE 21 mEq/l (22-31); CHLORIDE 106 mEq/L (97-110); CREATININE 0.9 mg/dL (0.7-1.3); GLOMERULAR FILTRATION RATE > 60; GLUCOSE 122 mg/dL (70-100); POTASSIUM 4.5 mEq/L (3.5-5.2); SODIUM 142 mEq/L (134-144)
[2017-02-06 15:03] LABS: COLOR YELLOW; LEUKOCYTE ESTERASE,URINE NEGATIVE (NEGATIVE); NITRITE,URINE NEGATIVE (NEGATIVE)
[2017-02-06 15:07] LABS: MUCUS TRACE /lpf (NONE-1+)
[2017-02-06 16:39] VITALS: BP 96/69; PULSE 76; RESP 16; TEMP 98.4; O2SAT 96
== END 2017-02-06 16:36 | disposition home or self-care (01) ==
DX: R51 Headache (principal); J45.909 Unspecified asthma, uncomplicated; E11.9 Type 2 diabetes mellitus without complications; Z79.84 Long term (current) use of oral hypoglycemic drugs; Z85.46 Personal history of malignant neoplasm of prostate; Z87.820 Personal history of traumatic brain injury

== ENCOUNTER 2017-05-01 11:07 | Emergency (ER) | payer OTHER, MEDICAID ==
[2017-05-01 11:23] VITALS: BP 139/92; TEMP 98.1; O2SAT 92
[2017-05-01] MEDS ORDERED: PROPARACAINE 0.5% 15 ML OPHT DROP OP ONE (12:04)
--- NOTE | 2017-05-01 12:29 | EDPHY ---
H & P Time Seen by Provider: 05/01/17 11:49 HPI/ROS: This patient presents with red eye and diminished vision in the left eye. The symptoms developed this morning after brushed his teeth in the left eye with marked redness to the sclera consistent with a subconjunctival hemorrhage. The patient is Kinyarwanda and his daughter provides translation. He feels he has diminished vision in the same eye describing slightly blurry. He denies any trauma. He has no right eye symptoms. He does not take any blood thinners. He has never had this occur to him before. ROS: HEENT: No ocular or head trauma. He denies any pain in the affected eye. Pulmonary: No coughing GI: No vomiting. Heme: No easy bruising or hematuria. 5 point ROS is otherwise negative. Past Medical/Surgical History: Type 2 diabetes on Glucophage Hypertension Dyslipidemia Smoking Status: Never smoked Physical Exam: Physical Exam Vital signs are normal. General: No acute distress HEENT: Atraumatic. No facial skin lesions. Eyes: Pupils equal and react to light. Extraocular motions are intact. Patient has subconjunctival hemorrhage medial more than lateral to the left eye. Optic fundi appear normal with no hemorrhage or papilledema. Slit lamp exam reveals no corneal abnormalities to the affected eye. Danie-Pen pressure in the affected eye is 15, unaffected eye is 18 this is performed after proparacaine anesthesia. Patient's visual acuity is 20/25 right eye and 20/50 OS Lungs: No respiratory distress. Cardiac: Brisk capillary refill is intact throughout. Skin: No rash or pallor. No bruising. Neuro: Alert and oriented x3 with no sensorimotor deficits. Constitutional: Initial Vital Signs Temperature (C) 36.7 C 05/01/17 11:17 Heart Rate 63 05/01/17 11:17 Respiratory Rate 18 05/01/17 11:17 Blood Pressure 139/92 H 05/01/17 11:17 O2 Sat (%) 92 05/01/17 11:17 O2 Delivery Mode Room Air Allergies/Adverse Reactions: azithromycin Allergy (Verified 05/01/17 11:12) metal Allergy (Uncoded 05/01/17 11:12) Home Medications: Medication Instructions Recorded metFORMIN HCL [Glucophage 500 mg 500 mg PO DAILY18 01/23/11 (*)] Albuterol [Proventil Inhaler HFA 1 puffs IH Q6HRS PRN 11/01/15 (*)] Simvastatin [Zocor] 20 mg PO HS 11/01/15 Capsaicin 0.025% 1 lloyd TP QID PRN 01/27/17 Losartan Potassium 100 mg PO DAILY 01/27/17 metFORMIN HCL [Glucophage 1000 mg] 1,000 mg PO DAILY 01/27/17 Escitalopram Oxalate [Lexapro] 5 mg PO 02/06/17 traMADol [Ultram 50 mg (*)] 50 mg PO 02/06/17 Fluticasone Propionate [Flovent 05/01/17 Hfa] MDM/Departure - MDM Medications Given: Discontinued Medications Proparacaine HCl (Alcaine 0.5%) 1 drops OP EDNOW ONE Stop: 05/01/17 12:05 Last Admin: 05/01/17 12:10 Dose: 2 drops ED Course/Re-evaluation: Discussion: Patient with subconjunctival hemorrhage. His cares that he has diminished vision in the affected eye. Ruled out glaucoma with normal pressures. No evidence of corneal injury and appreciate no obvious funduscopic abnormalities. I refer the patient to Dr. Nathan-ophthalmology for further evaluation given diminished vision in the affected eye. - Depart Disposition: Home, Routine, Self-Care Clinical Impression: Subconjunctival hemorrhage of left eye, Visual loss Condition: Good Instructions: Subconjunctival Hemorrhage (ED) Additional Instructions: Diagnosis: 1. Subconjunctival hemorrhage 2. 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 Return for any significant worsening despite the treatment plan. Referrals: Han Nathan MD [Medical Doctor] - As per Instructions
[2017-05-01 13:08] VITALS: PULSE 62; RESP 16
== END 2017-05-01 12:40 | disposition home or self-care (01) ==
LOC: CED 11:07
DX: H11.32 Conjunctival hemorrhage, left eye (principal); H54.7 Unspecified visual loss; E11.9 Type 2 diabetes mellitus without complications; I10 Essential (primary) hypertension; Z79.84 Long term (current) use of oral hypoglycemic drugs

== ENCOUNTER → 2017-07-27 | Outpatient (CLI) | payer OTHER, MEDICAID | LOC: BRMIMAGING 09:24 | PROVIDERS: ATTEND Internal Medicine Hematology & Oncology | DX: Z13.820 Encounter for screening for osteoporosis (principal); M81.0 Age-related osteoporosis without current pathological fracture; C61 Malignant neoplasm of prostate ==

== ENCOUNTER → 2017-09-27 | Outpatient (CLI) | payer OTHER, MEDICAID ==
[~2017-09-27] MED LIST: IOPAMIDOL (ISOVUE-300) 100 ML BTL ONE
== END ==
LOC: CIMAGING 10:42
PROVIDERS: ATTEND Family Medicine
DX: I70.90 Unspecified atherosclerosis (principal); I74.8 Embolism and thrombosis of other arteries
CPT/HCPCS: 74177; Q9967

== ENCOUNTER 2017-11-30 15:08 | Emergency (ER) | payer OTHER, MEDICAID ==
--- NOTE | 2017-11-30 15:24 | EDPHY ---
H & P Stated Complaint: GENERALIZED WEAKNESS, HEADACHE SINCE MONDAY Time Seen by Provider: 11/30/17 15:23 HPI/ROS: CHIEF COMPLAINT: Headache, weakness, and fatigue HISTORY OF PRESENT ILLNESS: This is an 82-year-old Laotian gentleman I who complains of diffuse persistent headache (present on and off since a hemorrhagic stroke in January of 2017), diffuse weakness, and fatigue. He is here with his son who tells me that he has not been eating well. His son is concerned that he might be dehydrated, as he has been gardening outside. The patient has had a headache since his stroke, as noted above, but states that it has recently been somewhat worse. He occasionally takes Tylenol with some relief. He has not had Tylenol for over 24 hr. He has seen several doctors for this problem in the past. He states that his vision is mildly blurred but he is not certain whether this is different. He denies focal weakness and focal numbness. No speech difficulties. His son tells me that his short-term memory is poor but that this is not new. The patient is also complaining of abdominal pain, present for many months and unchanged. He underwent a CT scan of the abdomen and pelvis in September of this year as part of an outpatient workup of abdominal pain. He has had no recent fever, vomiting, nausea, diarrhea, or constipation. No dysuria. He has a history of ureterolithiasis. His son assisted in translation. The patient speaks some Welsh. REVIEW OF SYSTEMS: A ten point review of systems was performed and is negative with the exception of the items mentioned in the HPI. Past medical history: 1. Intracranial hemorrhage in January of 2017 2. Prostate cancer 3. Hypertension 4. Type 2 diabetes 5. Reactive airway disease 6. Hypercholesterolemia 7. Ureterolithiasis Past surgical history: 1. Cholecystectomy 2. 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 He and his live with their son. He does not use tobacco products or alcohol. He is originally from [place], of [place], and fought in the [place]. He has eight children. General Appearance: Alert. Vital signs reviewed. Head: Normocephalic atraumatic. Eyes: Pupils equal and round, no conjunctival injection, no discharge. Anicteric. ENT, Mouth: Mucous membranes are slightly dry no oropharyngeal erythema or edema. Neck: No lymphadenopathy, supple. Respiratory: Lungs are clear to auscultation; no wheezes, rales, or rhonchi. Cardiovascular: Regular rate and rhythm; no murmur, rub, or gallop. Gastrointestinal: Abdomen is soft mild tenderness in the midepigastrium, no guarding, no masses or organomegaly, bowel sounds normal. Skin: Warm and dry, no rashes on exposed skin, normal color. Back: Nontender to palpation over the thoracolumbar spine. No CVAT. Extremities: Trace right lower extremity edema, no calf tenderness or swelling. 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 Neurological: Alert and oriented. Moving all four extremities easily and equally. Cranial nerves II through XII are examined and are intact (visual acuity not tested). Strength is 5 over 5 bilaterally with testing of all major motor groups. Sensation is intact to light touch over all 4 extremities. Psychiatric: Normal affect. - Medical/Surgical History Hx Asthma: Yes Hx Chronic Respiratory Disease: No Hx Diabetes: Yes Hx Cardiac Disease: No Hx Renal Disease: No Hx Cirrhosis: No Hx Alcoholism: No Hx HIV/AIDS: No Hx Splenectomy or Spleen Trauma: No Other PMH: HTN,prostate CA,left bna,abnormal ecg,asthma,diabetes type 2, enlarged aorta,cholesterol,vitamin d deficency. 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 [facility] Jan 2017 - Social History Smoking Status: Never smoked Constitutional: Initial Vital Signs Temperature (C) 36.9 C 11/30/17 15:21 Heart Rate 78 11/30/17 15:21 Respiratory Rate 20 11/30/17 15:21 Blood Pressure 116/73 11/30/17 15:21 O2 Sat (%) 94 11/30/17 15:21 O2 Delivery Mode Room Air Allergies/Adverse Reactions: azithromycin Allergy (Verified 11/30/17 15:20) metal Allergy (Uncoded 11/30/17 15:20) Home Medications: Medication Instructions Recorded metFORMIN HCL [Glucophage 500 mg 500 mg PO DAILY18 01/23/11 (*)] Albuterol [Proventil Inhaler HFA 1 puffs IH Q6HRS PRN 11/01/15 (*)] Simvastatin [Zocor] 20 mg PO HS 11/01/15 Capsaicin 0.025% 1 lloyd TP QID PRN 01/27/17 Losartan Potassium 100 mg PO DAILY 01/27/17 metFORMIN HCL [Glucophage 1000 mg] 1,000 mg PO DAILY 01/27/17 Escitalopram Oxalate [Lexapro] 5 mg PO 02/06/17 traMADol [Ultram 50 mg (*)] 50 mg PO 02/06/17 Fluticasone Propionate [Flovent 05/01/17 Hfa] Medical Decision Making - Diagnostics EKG Interpretation: 12 lead EKG is interpreted in Trace master View by emergency department physician. No significant change compared to an EKG in 2017. There are inferior Q-waves, seen previously. Sinus rhythm. Imaging Results: Imaging Impressions Head CT 11/30/17 15:41 Impression: 1. Moderate atrophy. 2. No hemorrhage, mass effect, or definite acute peripheral infarct. 3. Moderate stable nonspecific hypodensities in the white matter of bilateral cerebral hemispheres. Differential diagnosis includes microvascular ischemic disease, post-infectious/post-inflammatory sequela, atypical demyelinating disease, or migraine-related sequela. Small white matter lacunar infarcts may also have this appearance. 4. Moderate cerumen right external auditory canal If symptoms worsen, additional imaging may be necessary. Findings discussed with Nan Rodriguez M.D. at 16:36 hour, 11/30/2017 ED Course/Re-evaluation: This is an 82-year-old male with complaints of headache, somewhat worse than his usual headaches (that he has experienced since he had a hemorrhagic stroke a year ago). He also describes fatigue, diffuse weakness, and anorexia. Evaluation in the emergency department included an EKG that is unchanged compared to 1 done a year ago and troponin which is normal. CBC and chemistries also normal. CT scan of the brain without contrast was reviewed by me and reported to me by Dr. Marie. No acute findings. He received 1 L IV normal saline in the emergency department with some relief of headache. He was also given Tylenol 500 mg p.o.. The above findings were reviewed with the patient and his son. I am not recommending any further evaluation at this time. I have not found a serious or life-threatening problem. I do not think that he has an acute coronary syndrome. There is no evidence of infection. His neurologic exam is normal and I do not suspect stroke. I am recommending follow up with his primary care physician. We spoke a bit about dehydration, as he gardens outside. We also spoke about loneliness and depression, which his son thinks might be part of the problem. Differential Diagnosis: Headache including but not limited to subarachnoid hemorrhage, migraine headache , tension headache and infectious causes such as meningitis, pharyngitis and sinusitis. - Data Points Laboratory Results: Laboratory Results 11/30/17 15:35 11/30/17 11/30/17 11/30/17 16:00 15:41 15:35 WBC 3.98 10^3/uL 10^3/uL (3.80-9.50) RBC 4.86 10^6/uL 10^6/uL (4.40-6.38) Hgb 15.1 g/dL g/dL (13.7-17.5) Hct 46.3 % % (40.0-51.0) MCV 95.3 fL fL (81.5-99.8) MCH 31.1 pg pg (27.9-34.1) MCHC 32.6 g/dL g/dL (32.4-36.7) RDW 13.7 % % (11.5-15.2) Plt Count 151 10^3/uL 10^3/uL (150-400) MPV 9.3 fL fL (8.7-11.7) Neut % (Auto) 48.1 % % (39.3-74.2) Lymph % (Auto) 33.7 % % (15.0-45.0) [place] % (Auto) 13.6 % H % (4.5-13.0) Eos % (Auto) 3.8 % % (0.6-7.6) Baso % (Auto) 0.8 % % (0.3-1.7) Nucleat RBC Rel Count 0.0 % % (0.0-0.2) Absolute Neuts (auto) 1.92 10^3/uL 10^3/uL (1.70-6.50) Absolute Lymphs (auto) 1.34 10^3/uL 10^3/uL (1.00-3.00) Absolute Monos (auto) 0.54 10^3/uL 10^3/uL (0.30-0.80) Absolute Eos (auto) 0.15 10^3/uL 10^3/uL (0.03-0.40) Absolute Basos (auto) 0.03 10^3/uL 10^3/uL (0.02-0.10) Absolute Nucleated RBC 0.00 10^3/uL 10^3/uL (0-0.01) Immature Gran % 0.0 % % (0.0-1.1) Immature Gran # 0.00 10^3/uL 10^3/uL (0.00-0.10) POC Sodium 142 mEq/L mEq/L (135-145) POC Potassium 3.7 mEq/L mEq/L (3.3-5.0) POC Chloride 103.0 mEq/L mEq/L (97-110) POC Total CO2 26 mEq/L mEq/L (22-31) POC BUN 18 mg/dL mg/dL (7-23) POC Creatinine 1.0 mg/dL mg/dL (0.7-1.3) POC Glucose 97 mg/dL mg/dL (70-100) POC Calcium 9.5 mg/dL mg/dL (8.5-10.4) POC Troponin I 0.00 ng/mL ng/mL (0.00-0.08) Medications Given: Discontinued Medications Sodium Chloride (Ns) 1,000 mls @ 0 mls/hr IV EDNOW ONE; Wide Open PRN Reason: Protocol Stop: 11/30/17 15:42 Last Admin: 11/30/17 15:42 Dose: 1,000 mls Point of Care Test Results: Chemistry 11/30/17 11/30/17 16:00 15:41 POC Sodium 142 mEq/L mEq/L (135-145) POC Potassium 3.7 mEq/L mEq/L (3.3-5.0) POC Chloride 103.0 mEq/L mEq/L (97-110) POC Total CO2 26 mEq/L mEq/L (22-31) POC BUN 18 mg/dL mg/dL (7-23) POC Creatinine 1.0 mg/dL mg/dL (0.7-1.3) POC Glucose 97 mg/dL mg/dL (70-100) POC Calcium 9.5 mg/dL mg/dL (8.5-10.4) POC Troponin I 0.00 ng/mL ng/mL (0.00-0.08) Departure - Departure Disposition: Home, Routine, Self-Care Clinical Impression: Headache Qualifiers: Headache type: other headache syndrome Qualified Code(s): G44.89 - Other headache syndrome Condition: Good Instructions: Acute Headache (ED) Additional Instructions: Adult Pain & Fever Control: We recommend Acetaminophen (Tylenol) and Ibuprofen (Motrin,Advil) for pain and fever control. When fever is high or pain severe, both drugs can be used at the same time, but at different intervals. Please note the time differences. Your dose is: Acetaminophen 500mg every 4 to 6 hours Ibuprofen 400mg every 8 hours with food OR Note: do not take Acetaminophen with Hydrocodone (Vicodin, Lortab) or Oycodone (Percocet). These medications also contain Acetaminophen. No more than 3000mg of Acetaminophen should be taken in 24 hours (for an adult). Referrals: Hernando Shah DO [Primary Care Provider] - As per Instructions
--- NOTE | 2017-11-30 15:33 | CPEKG ---
Heart Rate: 75 RR Interval: 800 P-R Interval: 192 QRSD Interval: 78 QT Interval: 372 QTC Interval: 416 P [place]: 23 QRS [place]: 26 T Wave [place]: 108 EKG Severity - ABNORMAL ECG - EKG Impression: SINUS RHYTHM EKG Impression: PROBABLE LEFT ATRIAL ABNORMALITY EKG Impression: INFERIOR INFARCT, AGE INDETERMINATE EKG Impression: LATERAL LEADS ARE ALSO INVOLVED Electronically Signed By: Nan Rodriguez 30-Nov-2017 15:58:13
[2017-11-30] MEDS ORDERED: NS 1,000 ML IV ONE (15:41)
[2017-11-30 16:30] LABS: PLATELET COUNT 151 10^3/uL (150-400)
[2017-11-30] MEDS ORDERED: ACETAMINOPHEN 500 MG TAB PO ONE (16:53)
[2017-11-30 17:13] VITALS: BP 124/80
== END 2017-11-30 17:14 | disposition home or self-care (01) ==
LOC: CED 15:08
DX: G44.89 Other headache syndrome (principal); E86.9 Volume depletion, unspecified; I10 Essential (primary) hypertension; E11.9 Type 2 diabetes mellitus without complications; J44.9 Chronic obstructive pulmonary disease, unspecified; Z79.84 Long term (current) use of oral hypoglycemic drugs; Z85.46 Personal history of malignant neoplasm of prostate
CPT/HCPCS: 70450-PO; 80048-PO; 84484-PO

== ENCOUNTER 2018-01-03 17:29 | Inpatient (IN) | payer OTHER, MEDICAID ==
[2018-01-03] MEDS ORDERED: IPRATROPIUM/ALBUTEROL 3 ML DEYVIAL IH ONE (17:46)
[2018-01-03] MEDS ORDERED: EPINEPHrine 1 MG/ML INJ IM ONE (17:46)
[2018-01-03] MEDS ORDERED: methylPREDNISolone SOD SUCC 125 MG/2 ML VIAL IVP ONE (17:46)
[2018-01-03] MEDS ORDERED: NS 1,000 ML IV ONE (17:46)
[2018-01-03] MEDS ORDERED: RANITIDINE 50 MG/2 ML VIAL IVP ONE (17:46)
--- NOTE | 2018-01-03 17:49 | EDPHY ---
H & P Time Seen by Provider: 01/03/18 17:45 HPI/ROS: CHIEF COMPLAINT: Allergic reaction HISTORY OF PRESENT ILLNESS: Patient is an 82-year-old Greek man who is brought in by his family who is acting as translators. They report that he has had multiple allergic reactions recently for unknown reasons. He had allergy testing on his back earlier today but did not have any significant reactions. He just finished a course of Benadryl and prednisone on Monday from his previous anaphylactic reaction. This afternoon he had a strawberry shake and about an 2 hr later He presents with hives throughout his torso and upper extremities as well as swollen lips and wheezing. Family reports that he had a strawberry shake last week without any difficulties. He has a history of asthma. He also has history of hypertension, prediabetes, traumatic left bka, prostate cancer and a intracranial hemorrhage 1 year ago. REVIEW OF SYSTEMS: Constitutional: denies: chills, fever, recent illness, recent injury EENTM: denies: blurred vision, double vision, nose congestion Respiratory: See HPI Cardiac: denies: chest pain, irregular heart rate, lightheadedness, palpitations Gastrointestinal/Abdominal: denies: abdominal pain, diarrhea, nausea, vomiting, blood streaked stools Genitourinary: denies: dysuria, frequency, hematuria, pain Musculoskeletal: denies: joint pain, muscle pain Skin: See HPI Neurological: Fatigued Hematologic/Lymphatic: denies: blood clots, easy bleeding, easy bruising Immunologic/allergic: denies: HIV/AIDS, transplant EXAM: GENERAL: Acute distress, tachypneic, urticarial HEAD: Atraumatic, normocephalic. EYES: Pupils equal round and reactive to light, extraocular movements intact, sclera anicteric, conjunctiva are normal. ENT: Lower lip swelling, no intraoral swelling TMs normal, nares patent, oropharynx clear without exudates. Moist mucous membranes. NECK: Normal range of motion, supple without lymphadenopathy or JVD. LUNGS: Tachypneic, wheezing, no stridor HEART: Regular rate and rhythm without murmurs, rubs or gallops. ABDOMEN: Soft, nontender, normoactive bowel sounds. No guarding, no rebound. No masses appreciated. BACK: No CVA tenderness, no spinal tenderness, step-offs or deformities EXTREMITIES: Normal range of motion, no pitting or edema. No clubbing or cyanosis. NEUROLOGICAL: Cranial nerves II through XII grossly intact. Normal speech, normal gait. 5/5 strength, normal movement in all extremities, normal sensation PSYCH: Normal mood, normal affect. SKIN: Worsening hives throughout torso and upper extremities Source: Patient, Family Exam Limitations: Language barrier (Prefers family interpreting) - Medical/Surgical History Hx Asthma: Yes Hx Chronic Respiratory Disease: No Hx Diabetes: Yes Hx Cardiac Disease: No Hx Renal Disease: No Hx Cirrhosis: No Hx Alcoholism: No Hx HIV/AIDS: No Hx Splenectomy or Spleen Trauma: No Other PMH: HTN,prostate CA,left bna,abnormal ecg,asthma,diabetes type 2, enlarged ascending aorta,cholesterol,vitamin d deficency. Cholecystectomy. [facility] Jan 2017 - Family History Significant Family History: No pertinent family hx - Social History Smoking Status: Never smoked Alcohol Use: None Constitutional: Initial Vital Signs Temperature (C) 36.8 C 01/03/18 17:30 Heart Rate 99 01/03/18 17:30 Respiratory Rate 35 H 01/03/18 17:30 Blood Pressure 148/88 H 01/03/18 17:30 O2 Sat (%) 95 01/03/18 17:30 O2 Delivery Mode Nasal Cannula O2 (L/minute) 2 Allergies/Adverse Reactions: hydrochlorothiazide Allergy (Severe, Verified 01/04/18 15:37) Other-Enter Comments azithromycin Allergy (Verified 01/03/18 19:14) metal Allergy (Uncoded 01/03/18 19:14) Home Medications: Medication Instructions Recorded metFORMIN HCL [Glucophage 500 mg 500 mg PO DAILY18 01/23/11 (*)] Albuterol [Proventil Inhaler HFA 1 puffs IH Q6HRS PRN 11/01/15 (*)] Simvastatin [Zocor] 40 mg PO HS 11/01/15 Capsaicin 0.025% 1 lloyd TP QID PRN 01/27/17 metFORMIN HCL [Glucophage 1000 mg] 1,000 mg PO DAILY 01/27/17 traMADol [Ultram 50 mg (*)] 50 mg PO Q6 PRN 02/06/17 Cholecalciferol Vit D3 [Vitamin D3 1,000 units PO DAILY 01/04/18 (*)] Escitalopram Oxalate [Lexapro] 20 mg PO DAILY 01/04/18 Famotidine [Pepcid 20 MG (*)] 20 mg PO DAILY 01/04/18 Fluticasone Hfa 110 Mcg [Flovent 1 puffs IH BID 01/04/18 110 MCG Hfa MDI (*)] Hydrochlorothiazide [HCTZ (*)] 12.5 mg PO DAILY 01/04/18 diphenhydrAMINE [Benadryl 25 MG 25 mg PO HS PRN 01/04/18 (*)] Medical Decision Making - Diagnostics EKG Interpretation: An EKG obtained and was read and documented in trace view. Please see trace view for full reading and report. Sinus rhythm, no acute ischemic changes, similar to previous Imaging: Discussed imaging studies w/ call person Radiologist ED Course/Re-evaluation: 6:00 p.m. the patient is doing somewhat better. His hives are reversing. 6:40 p.m. the patient is doing much better from an allergic reaction standpoint however he is beginning to plain of epigastric pain. He has a history of cholecystectomy and ascending aortic dilatation. He states that he has not had abdominal pain or vomiting with previous allergic reactions. He has slight epigastric tenderness. I will obtain EKG as well as CT scan of his abdomen and lab work. 8:00 p.m. the patient's amylase and LFTs are significantly elevated. His CT scan shows inflammation around the pancreas. Will require admission. Family states that his last 2 admissions for allergic reactions were [facility] but he typically prefers to go to [place]. We will plan to admit him there. [address] Jovon Kc who will admit. Differential Diagnosis: Partial list of the Differential diagnosis considered include but were not limited to; allergic reaction, pancreatitis, hepatitis anaphylaxis and although unlikely based on the history and physical exam, I also considered pneumonia, PE, acute coronary disease, aneurysm. Critical Care Time: Critical care time spent by me, Dr. Arreguin exclusive with this patient was 45 minutes, exclusive of the PA time exclusive of procedures. The organ system that was at risk was cardiovascular and I gave diagnosis, treatment, consultation and admission to prevent worsening of the patient's condition - Data Points Laboratory Results: Laboratory Results 01/04/18 05:23 01/04/18 05:23 01/04/18 01/04/18 05:23 05:23 WBC 9.40 10^3/uL 10^3/uL (3.80-9.50) RBC 4.85 10^6/uL 10^6/uL (4.40-6.38) Hgb 15.1 g/dL g/dL (13.7-17.5) Hct 45.6 % % (40.0-51.0) MCV 94.0 fL fL (81.5-99.8) MCH 31.1 pg pg (27.9-34.1) MCHC 33.1 g/dL g/dL (32.4-36.7) RDW 14.4 % % (11.5-15.2) Plt Count 123 10^3/uL L 10^3/uL (150-400) MPV 9.2 fL fL (8.7-11.7) Neut % (Auto) Not Reported Lymph % (Auto) Not Reported [place] % (Auto) Not Reported Eos % (Auto) Not Reported Baso % (Auto) Not Reported Nucleat RBC Rel Count Not Reported Absolute Neuts (auto) Not Reported Absolute Lymphs (auto) Not Reported Absolute Monos (auto) Not Reported Absolute Eos (auto) Not Reported Absolute Basos (auto) Not Reported Absolute Nucleated RBC Not Reported Immature Gran % Not Reported Seg Neutrophils % 62.3 % % Band Neutrophils % 26.5 % % Lymphocytes % 2.0 % % Monocytes % 8.2 % % Eosinophils % 0 % % Basophils % 0 % % Metamyelocytes % 1.0 % % Myelocytes % 0 % % Promyelocytes % 0 % % Blast Cells % 0 % % Immature Gran # Not Reported Absolute Seg Neuts 5.86 10^/uL 10^/uL (1.70-6.50) Absolute Band Neuts 2.49 10^3/uL H 10^3/uL (0.00-0.70) Absolute Lymphocytes 0.19 10^3/uL L 10^3/uL (1.00-3.00) Absolute Monocytes 0.77 10^3/uL 10^3/uL (0.30-0.80) Absolute Eosinophils 0.00 10^3/uL L 10^3/uL (0.03-0.40) Absolute Basophils 0.00 10^3/uL L 10^3/uL (0.02-0.10) Absolute Metamyelocyte 0.09 10^3/mL H 10^3/mL (0.00-0.00) Absolute Myelocytes 0.00 10^3/mL 10^3/mL (0.00-0.00) Absolute Promyelocytes 0.00 10^3/uL 10^3/uL (0.00-0.00) Absolute Plasma Cells 0.00 10^3/uL 10^3/uL (0.00-0.00) Nucleated RBCs 1.0 /100 WBC H /100 WBC (0-0) RBC/WBC/PLT Morphology NORMAL (NORMAL) Absolute Blast Cells 0.00 10^3/uL 10^3/uL (0.00-0.00) Plasma Cells % 0 % % Platelet Estimate DECREASED L (ADEQ) Sodium 139 mEq/L mEq/L (135-145) Potassium 4.5 mEq/L mEq/L (3.3-5.0) Chloride 108 mEq/L mEq/L (97-110) Carbon Dioxide 20 mEq/l L mEq/l (22-31) Anion Gap 11 mEq/L mEq/L (8-16) BUN 15 mg/dL mg/dL (7-23) Creatinine 0.9 mg/dL mg/dL (0.7-1.3) Estimated GFR > 60 Glucose 176 mg/dL H mg/dL (70-100) Calcium 8.8 mg/dL mg/dL (8.5-10.4) Total Bilirubin 3.1 mg/dL H mg/dL (0.1-1.4) Conjugated Bilirubin 1.6 mg/dL H mg/dL (0.0-0.5) Unconjugated Bilirubin 1.5 mg/dL H mg/dL (0.0-1.1) AST 1073 IU/L H IU/L (17-59) ALT 851 IU/L H IU/L (21-72) Alkaline Phosphatase 113 IU/L IU/L (38-126) Total Protein 6.3 g/dL g/dL (6.3-8.2) Albumin 3.7 g/dL g/dL (3.5-5.0) Triglycerides 69 mg/dL mg/dL (40-150) Amylase 1546 IU/L H IU/L (30-110) Lipase 84158 IU/L H IU/L (23-300) Medications Given: Hydromorphone HCl (Dilaudid) 0.25 - 0.5 mg IVP Q2HRS PRN PRN Reason: Pain, Severe Unable to Take PO Stop: 01/13/18 23:14 Last Admin: 01/04/18 12:00 Dose: 0.5 mg Sodium Chloride (Ns) 1,000 mls @ 75 mls/hr IV CONT [facility] Stop: 07/02/18 23:14 Last Admin: 01/04/18 12:01 Dose: 1,000 mls Famotidine/Sodium Chloride (Pepcid 20 Mg (Premix)) 50 mls @ 200 mls/hr IV Q12 [facility] Stop: 07/03/18 10:14 Last Admin: 01/04/18 10:06 Dose: 50 mls Insulin Human Lispro (Humalog Lispro) 0 unit SC ACHS DEREK PRN Reason: Protocol Stop: 07/03/18 07:29 Last Admin: 01/04/18 11:59 Dose: 2 unit Methylprednisolone Sodium Succinate (Solu-Medrol) 60 mg IVP DAILY [facility] Stop: 07/03/18 08:59 Last Admin: 01/04/18 07:41 Dose: 60 mg Discontinued Medications Albuterol/Ipratropium (Duoneb) 3 ml IH EDNOW ONE Stop: 01/03/18 17:47 Last Admin: 01/03/18 17:40 Dose: 3 ml Diphenhydramine HCl (Benadryl Injection) 50 mg IVP EDNOW ONE Stop: 01/03/18 17:47 Last Admin: 01/03/18 17:45 Dose: 50 mg Epinephrine HCl (Epinephrine) 0.3 mg IM EDNOW ONE Stop: 01/03/18 17:47 Last Admin: 01/03/18 17:36 Dose: 0.3 mg Hydromorphone HCl (Dilaudid) 0.5 mg IVP EDNOW ONE Stop: 01/03/18 19:05 Last Admin: 01/03/18 19:10 Dose: 0.5 mg Hydromorphone HCl (Dilaudid) 0.5 mg IVP EDNOW ONE Stop: 01/03/18 23:02 Last Admin: 01/03/18 23:12 Dose: 0.5 mg Sodium Chloride (Ns) 1,000 mls @ 0 mls/hr IV ONCE ONE; Wide Open PRN Reason: Protocol Stop: 01/03/18 17:47 Last Admin: 01/03/18 17:45 Dose: 1,000 mls Methylprednisolone Sodium Succinate (Solu-Medrol) 125 mg IVP EDNOW ONE Stop: 01/03/18 17:47 Last Admin: 01/03/18 17:46 Dose: 125 mg Ondansetron HCl (Zofran) 4 mg IVP EDNOW ONE Stop: 01/03/18 18:41 Last Admin: 01/03/18 18:56 Dose: 4 mg Ranitidine HCl (Zantac) 50 mg IVP EDNOW ONE Stop: 01/03/18 17:47 Last Admin: 01/03/18 17:50 Dose: 50 mg Ranitidine HCl (Zantac) 50 mg IVP Q12HRS [facility] Stop: 07/03/18 08:59 Last Admin: 01/04/18 10:04 Dose: Not Given Point of Care Test Results: CBC CBC Collection Date 01/03/18 CBC Collection Time 19:00 WBC 9.2 RBC 4.27 PLT 131 Neut # 6.1 Neut 65.5 LYMPH # 2.4 LYMPH 26.5 Other WBC # 0.7 Other WBC 8 Chemistry 01/03/18 01/03/18 01/03/18 19:15 19:10 18:59 POC Sodium 143 mEq/L mEq/L 147 mEq/L H mEq/L (135-145) (135-145) POC Potassium 3.4 mEq/L mEq/L 3.6 mEq/L mEq/L (3.3-5.0) (3.3-5.0) POC Chloride 106 mEq/L mEq/L 107.0 mEq/L mEq/L (97-110) (97-110) POC Total CO2 26 mEq/L mEq/L (22-31) POC BUN 12 mg/dL mg/dL 12 mg/dL mg/dL (7-23) (7-23) POC Creatinine 1.0 mg/dL mg/dL 1.2 mg/dL mg/dL (0.7-1.3) (0.7-1.3) POC Glucose TNP 181 mg/dL H mg/dL (70-100) POC Calcium 8.6 mg/dL mg/dL (8.5-10.4) POC Total Bilirubin 1.1 mg/dL mg/dL 1.1 mg/dL mg/dL (0.1-1.4) (0.1-1.4) POC GGT 134 IU/L H IU/L (5-65) POC AST 283 IU/L H IU/L 285 IU/L H IU/L (17-59) (17-59) POC ALT 151 IU/L H IU/L 156 IU/L H IU/L (21-72) (21-72) POC Alk Phosphatase 71 IU/L IU/L 73 IU/L IU/L (38-126) (38-126) POC Troponin I POC Total Protein 5.8 g/dL L g/dL 5.9 g/dL L g/dL (6.3-8.2) (6.3-8.2) POC Albumin 3.6 g/dL g/dL 3.5 g/dL g/dL (3.5-5.0) (3.5-5.0) POC Amylase 706 IU/L H IU/L (30-110) 01/03/18 18:58 POC Sodium POC Potassium POC Chloride POC Total CO2 POC BUN POC Creatinine POC Glucose POC Calcium POC Total Bilirubin POC GGT POC AST POC ALT POC Alk Phosphatase POC Troponin I 0.01 ng/mL ng/mL (0.00-0.08) POC Total Protein POC Albumin POC Amylase ISTAT H&H 01/03/18 19:10 POC Hgb 13.6 gm/dL L gm/dL (13.7-17.5) POC Hct 40 % % (40-51) Departure - Departure Disposition: [facility] Inpatient Acute Clinical Impression: Acute anaphylaxis Qualifiers: Encounter type: initial encounter Qualified Code(s): T78.2XXA - Anaphylactic shock, unspecified, initial encounter Pancreatitis Qualifiers: Chronicity: acute Pancreatitis type: unspecified pancreatitis type Acute pancreatitis complication: unspecified Qualified Code(s): K85.90 - Acute pancreatitis without necrosis or infection, unspecified Condition: Fair
[2018-01-03] MEDS ORDERED: ONDANSETRON 4 MG/2 ML VIAL IVP ONE (18:40)
[2018-01-03] MEDS ORDERED: IOPAMIDOL (ISOVUE-300) 100 ML BTL ONE (18:42)
--- NOTE | 2018-01-03 18:47 | CPEKG ---
Heart Rate: 88 RR Interval: 682 P-R Interval: 192 QRSD Interval: 84 QT Interval: 432 QTC Interval: 523 P [place]: 15 QRS [place]: 26 T Wave [place]: -44 EKG Severity - ABNORMAL ECG - EKG Impression: SINUS RHYTHM EKG Impression: PROBABLE INFERIOR INFARCT, AGE INDETERMINATE EKG Impression: Similar to previous Electronically Signed By: Zach Arreguin 03-Jan-2018 18:52:57
[2018-01-03] MEDS ORDERED: HYDROmorphONE/DILAUDID 2 MG/ML INJ IVP ONE ×2 (19:04→23:01)
[2018-01-03] MEDS ORDERED: ONDANSETRON 4 MG/2 ML VIAL IVP PRN (23:12)
[2018-01-03] MEDS ORDERED: ACETAMINOPHEN 325 MG TAB PO PRN (23:12)
[2018-01-03] MEDS ORDERED: LORazepam 2 MG/ML INJ IVP PRN (23:16)
[2018-01-04] MEDS ORDERED: ALBUTEROL 3 ML DEYVIAL IH PRN (00:22)
[2018-01-04] MEDS ORDERED: EPINEPHrine 1 MG/ML INJ IM PRN (00:23)
[2018-01-04] MEDS: NS 1,000 ML IV SCH ×2 (00:27→12:01)
--- NOTE | 2018-01-04 00:37 | PDGENHP ---
History and Physical - Chief Complaint Anaphylaxis - History of Present Illness Source - patient is somnolent after receiving Benadryl and pain medications but he is able to say a few words. His primary language is Kyrgyz. His daughters are at bedside and is supply majority of the history. Kendall was reviewed as she reported patient had been admitted twice in the last 3-4 weeks for anaphylaxis. She could not recall or patient has been admitted. HPI - is a pleasant 82-year-old gentleman past medical history significant for HTN, HLD, pre DM, asthma, prostate cancer, BPH, hospitalization 2017 for intracranial hemorrhage who presents for admission [place] [facility] [place] complaints of anaphylaxis. Patient with approximately 3 week history of development of episodes of anaphylaxis on 2 occasions. On 12/18/2017 he was admitted to [facility] ICU with anaphylactic shock. Patient stabilized over several days and discharged home. On 12/21/2017 patient was admitted to [facility] again for anaphylactic reaction without shock. He was monitored and required several days of hospital stay for close monitoring. Patient was discharged with recommendations to follow up with parking lot attendant. Today on 01/03/2018, patient was evaluated with patch testing. Patient appeared to be doing well on and it was clarified that he had continued on Pepcid. Patient did not appear to react to controls per the daughter and so they were discharged. On the way home patient and his family stopped at [employer] for his usual snack which he has not had any previous issues with. Shortly after completing that patient developed facial swelling tongue swelling shortness of breath chest tightness and presented to [facility] for evaluation. Patient was given epinephrine, Solu-Medrol, Pepcid, Benadryl with improvement in his symptoms. Patient continues to note some mild dyspnea and persistent swelling of his lips and tongue although it is improved. He denies any current chest pain or tightness and shortness of breath has resolved. During his time in the ED however patient did begin to complain of some epigastric abdominal pain and distension. It was noted the patient's LFTs and amylase were significantly elevated. Patient subsequently underwent CT abdomen pelvis that was significant for acute pancreatitis. Per patient's daughter he reports that the majority of his abdominal pain worsened when he experience today's M anaphylactic episode but he may have been having some abdominal pain as early as yesterday. He has not had any diarrhea. No melena hematochezia. Patient denies any nausea no vomiting. No recent illnesses or sick contacts. Patient without any recent travel. History Information - Allergies/Home Medication List Allergies/Adverse Reactions: azithromycin Allergy (Verified 01/03/18 19:14) metal Allergy (Uncoded 01/03/18 19:14) Home Medications: metFORMIN HCL [Glucophage 500 mg (*)] 500 mg PO DAILY18 01/23/11 [Last Taken ] Albuterol [Proventil Inhaler HFA (*)] 1 puffs IH Q6HRS PRN 11/01/15 [Last Taken Unknown] Simvastatin [Zocor] 20 mg PO HS 11/01/15 [Last Taken 01/26/17] Capsaicin 0.025% 1 lloyd TP QID PRN 01/27/17 [Last Taken Unknown] metFORMIN HCL [Glucophage 1000 mg] 1,000 mg PO DAILY 01/27/17 [Last Taken ] Escitalopram Oxalate [Lexapro] 5 mg PO 02/06/17 [Last Taken Unknown] traMADol [Ultram 50 mg (*)] 50 mg PO 02/06/17 [Last Taken Unknown] Fluticasone Propionate [Flovent Hfa] 05/01/17 [Last Taken Unknown] HCTZ (*) 01/03/18 [Last Taken Unknown] I have personally reviewed and updated: family history, medical history, social history, surgical history - Past Medical History Additional medical history: HTN, HLD, pre DM, asthma, prostate cancer, BPH, intracranial hemorrhage 2017, kidney stone, headaches, anaphylaxis with history of anaphylactic shock in hospitalizations . 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 Patient has a prosthetic and does not normally require any assisted devices for ambulation. Daughter reports that patient understands Peruvian but has some difficulties responding due to language barrier. Cor status-discussed with the patient's daughter at bedside at this time patient will remain a full code and she will check with the family. Patient's last hospital stay in 2016 noted that he was a DNR DNI. His most recent H and Ps from Review of Systems Review of Systems: ROS: 10pt was reviewed & negative except for what was stated in HPI & below Constitutional: Reports: no symptoms EENMT: Reports: mouth swelling, throat swelling. Denies: blurred vision Cardiac: Reports: no symptoms (chest tightness resolved.) Respiratory: Reports: shortness of breath (improved). Denies: cough Gastrointestinal: Reports: abdominal pain, abdominal distention. Denies: black stools, rectal bleeding, diarrhea Genitourinary: Reports: no symptoms Muscolosketal: Reports: no symptoms Skin: Reports: no symptoms Neurological: Reports: no symptoms. Denies: weakness Physical Exam Physical Exam: Selected Entries 01/03/18 17:30 Blood Pressure Automatic Method Heart Rate 99 Respiratory 35 H Rate O2 Sat (%) 95 Temperature (C) 36.8 C Blood Pressure 148/88 H Mean Arterial 108 H Pressure (MAP) O2 Delivery Room Air Mode Temperature Oral Source Temp Pulse Resp BP Pulse Ox 36.8 C 95 21 H 148/93 H 98 01/03/18 23:51 01/03/18 23:51 01/03/18 23:51 01/03/18 23:51 01/03/18 23:51 O2 (L/minute) 2 Constitutional: no apparent distress, uncomfortable, other (NAD. Pleasant elderly gentleman is lying quietly in bed a little somnolent but wakes easily to name and is cooperative. He does appear uncomfortable cradle says abdomen intermittently.) Eyes: PERRL (Decreased reactivity light with pinpoint pupils but symmetric. No scleral icterus or conjunctival injection), anicteric sclera, EOMI, No scleral injection Ears, Nose, Mouth, Throat: no oral mucosal ulcers, dry mucous membranes, other ( Patient with lip swelling and tongue swelling but is able to protect his airway) , No poor dentition Cardiovascular: regular rate and rhythym, no murmur, rub, or gallop, pulses symmetric bilaterally, edema (Trace lower extremity) Peripheral Pulses: 1+: dorsalis-pedis (R), dorsalis-pedis (L) Respiratory: no respiratory distress, no rales or rhonchi, clear to auscultation , reduced air movement (Decreased echo inspiratory effort.), No expiratory wheeze, No inspiratory crackles Gastrointestinal: no palpable masses, tenderness (Epigastric mid abdomen above the umbilicus.), guarding (Patient with some voluntary guarding with expected palpation over the epigastric region.), distension (Mildly distended obese abdomen.), other (Hypoactive bowel sounds in all quadrants.) Genitourinary: no bladder tenderness, No rdz in urethra Skin: warm, normal color, no rashes or abrasions, No rash Musculoskeletal: generalized weakness, other (Left lower extremity amputated. Left stump with an a small area of callus formation otherwise patient is able to move all extremities. Strength is symmetric.), No pain with ROM Neurologic: AAOx3, sensation intact bilaterally, other (Grossly nonfocal exam), No facial droop Psychiatric: interacting appropriately, flat affect, other (Patient with the agitation. He does understand Peruvian and has some difficulties responding due to language barrier but otherwise appears appropriate.), No encephalopathic Lab Data & Imaging Review POC Hgb 13.6 gm/dL (13.7-17.5) L 01/03/18 19:10 POC Hct 40 % (40-51) 01/03/18 19:10 POC Sodium 143 mEq/L (135-145) 01/03/18 19:10 POC Potassium 3.4 mEq/L (3.3-5.0) 01/03/18 19:10 POC Chloride 106 mEq/L (97-110) 01/03/18 19:10 POC Total CO2 26 mEq/L (22-31) 01/03/18 18:59 POC BUN 12 mg/dL (7-23) 01/03/18 19:10 POC Creatinine 1.0 mg/dL (0.7-1.3) 01/03/18 19:10 POC Glucose TNP 01/03/18 19:10 POC Calcium 8.6 mg/dL (8.5-10.4) 01/03/18 18:59 POC Total Bilirubin 1.1 mg/dL (0.1-1.4) 01/03/18 19:15 POC GGT 134 IU/L (5-65) H 01/03/18 19:15 POC AST 283 IU/L (17-59) H 01/03/18 19:15 POC ALT 151 IU/L (21-72) H 01/03/18 19:15 POC Alk Phosphatase 71 IU/L (38-126) 07/25/18 19:15 POC Troponin I 0.01 ng/mL (0.00-0.08) 01/03/18 18:58 POC Total Protein 5.8 g/dL (6.3-8.2) L 01/03/18 19:15 POC Albumin 3.6 g/dL (3.5-5.0) 01/03/18 19:15 POC Amylase 706 IU/L (30-110) H 01/03/18 19:15 Imaging Review: CT Abd Pel W IV Contrast ___ CT Scan of the Abdomen and Pelvis, With Contrast Indication: Abrupt onset of epigastric and abdominal pain in an 82-year-old male. There is an elevated lipase. Technique: Multidetector CT images of the abdomen and pelvis were obtained following the uneventful intravenous administration of [90] mL Isovue-300 contrast. Axial images were obtained at 5-mm thickness, with reformations performed at 1.5-mm intervals. Sagittal and coronal reformations were performed, and the examination was reviewed on the workstation at multiple window and level settings. Dose reduction techniques were utilized. Comparison: Comparison to the prior study of September 27, 2017. Abdomen: Lung bases: Basilar atelectasis is noted, and there are minimal pleural fluid collections bilaterally. Extensive coronary arterial calcifications are seen. Liver: Normal. Biliary system: The gallbladder is surgically absent. There is no intrahepatic biliary ductal dilatation. Spleen: Normal. Pancreas: There is marked edema in the peripancreatic fat and some heterogeneity of the pancreas in the area of the pancreatic head, with a constellation of findings consistent with acute pancreatitis. The pancreatic duct is mildly prominent but unchanged. There is a small amount of fluid extending into the right paracolic gutter. There is an air pocket in the region of the duodenal sweep, similar in appearance to the prior study, and presumably representing a duodenal diverticulum. Adrenals: Normal. Kidneys: No obstruction or solid masses. Multiple renal cysts are seen bilaterally, with an extremely large cyst noted on the left, measuring 12 cm in diameter. Abdominal Aorta: Calcified aortic plaque is seen, with no aneurysmal dilatation. No bowel obstruction, ascites, or retroperitoneal lymphadenopathy. CT Pelvis Findings: The bladder contour is normal. Prostatic calcifications are seen. No adenopathy is identified. No bowel dilatation is seen. Degenerative changes are noted in the spine. Impression: 1. Findings consistent with acute pancreatitis are seen, with no pseudocyst formation identified at this time. 2. See above report for additional findings. Results called and discussed with Zach Arreguin M.D., on January 03, 2018 at 7. Visualized and Interpreted imaging results: Yes EKG additional interpertation: NSR in the 80s. Q-waves in the inferior leads and ST depression in the lateral leads less than 1 mm. This appears to be stable compared to EKG from 11/29/2017. Current QTC is 523. Assessment & Plan Assessment: Pleasant 82-year-old gentleman with a history of recent episodes of anaphylaxis who presents to the [facility] shortly after development of lip, tongue swelling and dyspnea consistent with anaphylaxis. #Acute anaphylaxis (Acute) - sx improving slowly s/p epinephrine, ranitidine, benadryl, solu-medrol which we will continue. He continues to have notable lip and tongue swelling. maintaining O2 sats with minimal o2 supplementation. BPs are elevated. Source of patient reaction unclear but with recent allergy testing shortly before arrival to [facility]. Patient was previously on an ARB but this was discontinued after first episode. Will plan to continue Solu-Medrol in the morning and schedule Pepcid. Benadryl available p.r.n.. Will need additional follow-up with parking lot attendant at discharge. #Pancreatitis (Acute) - patient may have began to experience symptoms yesterday. no previously history of pancreatitis. Patient is s/p homer and does not drink. CT abd/pelvis without evidence of #Abdominal pain - dilaudid and ativan available prn. bowel sounds hypoactive. imaging without evidence of obstruction. chronic medical issues #benign essential HTN - blood pressure is mildly elevated. Patient is no longer on Randy or Arb at home. Hold off on beta-blockers with history of asthma. Hydralazine listed on home medication list. Will plan to continue. Hydralazine available p.r.n. #HLD - hold off on statin until discharge. #pre-dm - patient will be placed on low-dose sliding scale at this time. Holding metformin status post contrast. #asthma - albuterol nebulizer p.r.n.. Continue Flovent when med rec is available. No evidence of exacerbation. FEN - IVF overnight. No previous history of CHF. Electrolyte monitoring replacement if needed. Patient will be made NPO until his abdominal pain due to pancreatitis improves. I did clarify with patient's daughter is at bedside regarding need for bowel rest at this time. PPX-SCDs only. Holding anticoagulation with history of intracranial hemorrhage. Cor status-full at this time. Patient previously was a DNR DNI in 2017. Patient 's daughter bedside will clarify with rest the family in the morning. Disposition-patient admitted to observation status at this time and currently on ST you side as overflow for med/surge. His facial and tongue swelling are improving. Will continue steroids and monitor closely. Will see if patient's abdominal pain improved with bowel rest overnight and repeat a.m. Lipase and amylase.
[2018-01-04] MEDS ORDERED: hydrALAZINE 20 MG/ML VIAL IVP PRN (00:50)
[2018-01-04] MEDS ORDERED: D50W 25 GM/50 ML SYR IVP PRN (00:51)
[2018-01-04] MEDS: HYDROmorphONE/DILAUDID 1 MG/ML INJ IVP PRN ×3 (04:25→12:00)
[2018-01-04 06:31] LABS: PLATELET COUNT 123 10^3/uL (150-400)
[2018-01-04] MEDS: methylPREDNISolone SOD SUCC 125 MG/2 ML VIAL IVP SCH (07:41)
[2018-01-04] MEDS ORDERED: ENOXAPARIN 40 MG/0.4 ML SYR SC SCH (09:00)
[2018-01-04] MEDS ORDERED: RANITIDINE 50 MG/2 ML VIAL IVP SCH (09:00)
[2018-01-04] MEDS: INSULIN LISPRO 100 UNIT/ML SC SCH ×4 (09:09→22:17)
--- NOTE | 2018-01-04 10:00 | PDMN ---
Medical Necessity Medical necessity: Pt meets inpt criteria per MD order and MCG M-250, Pancreatitis, 2 days. Pt admitted w/epigastric and abd pain and symptoms of anaphylaxis, recent hospitalizations for anaphylaxis. Abd CT consistent w/ acute pancreatitis, amylase and lipase very elevated at 1546, 13755. IVF, IV steroids, IV pain meds as needed. Est LOS>2MN for med nec ongoing eval and treatment.
[2018-01-04] MEDS: FAMOTIDINE 20 MG/NACL 50 ML IV SCH ×2 (10:06→20:40)
--- NOTE | 2018-01-04 11:14 | ASMTCASEMG ---
Living Arrangements What is your living Answers: With Child(moises) arrangement? Who do you live with? Type Of Residence What kind of residence do Answers: House you live in? Discharge Plan Comments Coordination Status Comments Notes: Patient is an 82yo male who was admitted for multiple allergic reactions for unknown reasons. Patient presents with hives on his torso and upper extremities as well as swollen lips and wheezing. Patient has a hx of hypertension, prediabetes, traumatic left amputation, prostate cancer and an intracramial hemorrhage 1 year ago. No therapies ordered at this time. D/C plan TBD. CM will follow. Date Signed: 01/04/2018 11:13 AM Electronically Signed By:Fadia Stokes LCSW
[2018-01-04] MEDS ORDERED: CAPSAICIN 0.025% CREAM TP PRN (14:48)
[2018-01-04] MEDS ORDERED: ALBUTEROL IH PRN (14:48)
--- NOTE | 2018-01-04 15:22 | HOSPPROG ---
Hospitalist Progress Note Assessment/Plan: 82 yo M w htn, three recent episodes of angioedema vs anaphylaxis a/w same and found to have pancreatitis and elevated lft's pancreatitis: reasonably attributed to recent initiation of hctz concomitant lft's not explained by this had cholecystectomy 2 years ago no dilation in CT check u/s elevated lft's: markedly high this AM repeat now, if not trending down will check tylenol level, viral pane, etc non drinker anaphylaxis: no stridor or htn this may be more c/w angioedema conitnue steroids and prn benadryl proph: add lmwh dispo: step down Subjective: case d/w dr aguila. not hungry Objective: Vital Signs Temp Pulse Resp BP Pulse Ox 36.9 C 86 17 116/77 94 01/04/18 11:58 01/04/18 11:58 01/04/18 11:58 01/04/18 11:58 01/04/18 11:58 01/03/18 01/04/18 01/05/18 05:59 05:59 05:59 Output Total 120 Balance -120 - Physical Exam Constitutional: no apparent distress, appears nourished Eyes: PERRL, anicteric sclera Ears, Nose, Mouth, Throat: moist mucous membranes, hearing normal, ears appear normal Cardiovascular: regular rate and rhythym, no murmur, rub, or gallop, No tachycardia Respiratory: no respiratory distress, no rales or rhonchi Gastrointestinal: normoactive bowel sounds, soft, non-tender abdomen, No guarding, No rebound Genitourinary: no bladder fullness, No rdz in urethra Skin: warm, normal color, no induration Musculoskeletal: full muscle strength Neurologic: AAOx3 ICD10 Worksheet Patient Problems: Problems Problem Status Onset Acute anaphylaxis Acute Pancreatitis Acute Cerebral hemorrhage, nontraumatic Acute Confusion Acute Hypertension Acute
[2018-01-04] MEDS: FLUTICASONE HFA 110 MCG MDI IH SCH (21:04)
[2018-01-05] MEDS: NS 1,000 ML IV SCH (00:04)
[2018-01-05] MEDS: HYDROmorphONE/DILAUDID 1 MG/ML INJ IVP PRN (06:24)
[2018-01-05] MEDS: FLUTICASONE HFA 110 MCG MDI IH SCH (08:29)
[2018-01-05] MEDS: FAMOTIDINE 20 MG/NACL 50 ML IV SCH (08:35)
[2018-01-05] MEDS: methylPREDNISolone SOD SUCC 125 MG/2 ML VIAL IVP SCH (08:35)
[2018-01-05] MEDS: INSULIN LISPRO 100 UNIT/ML SC SCH ×2 (09:06→12:45)
--- NOTE | 2018-01-05 12:36 | HOSPPROG ---
Hospitalist Progress Note Assessment/Plan: 82 yo M w htn, three recent episodes of angioedema vs anaphylaxis a/w same and found to have pancreatitis and elevated lft's pancreatitis: reasonably attributed to recent initiation of hctz concomitant lft's not explained by this hungry- ADAT elevated lft's: trending down u/s neg no clear etiology identified anaphylaxis: no stridor or htn this may be more c/w angioedema conitnue steroids and prn benadryl better today dc steroids proph: add lmwh dispo: step down Subjective: feels better. hungry Objective: Vital Signs Temp Pulse Resp BP Pulse Ox 36.8 C 67 21 H 126/72 H 93 01/05/18 11:38 01/05/18 11:38 01/05/18 11:38 01/05/18 11:38 01/05/18 11:38 Laboratory Results 01/05/18 09:32 01/04/18 01/05/18 01/06/18 05:59 05:59 05:59 Intake Total 1125 1117 Output Total 1370 Balance -245 1117 - Physical Exam Constitutional: no apparent distress, appears nourished Eyes: PERRL, anicteric sclera Ears, Nose, Mouth, Throat: moist mucous membranes, hearing normal Cardiovascular: regular rate and rhythym, no murmur, rub, or gallop Respiratory: no respiratory distress, no rales or rhonchi Gastrointestinal: normoactive bowel sounds, soft, non-tender abdomen Genitourinary: no bladder fullness Skin: warm, normal color Musculoskeletal: full muscle strength, no muscle tenderness Neurologic: AAOx3, sensation intact bilaterally ICD10 Worksheet Patient Problems: Problems Problem Status Onset Acute anaphylaxis Acute Pancreatitis Acute Cerebral hemorrhage, nontraumatic Acute Confusion Acute Hypertension Acute
[2018-01-05 15:42] VITALS: BP 124/92
--- NOTE | 2018-01-05 16:00 | GDS ---
[f rep st] DISCHARGE SUMMARY Date of admission: DISCHARGE DIAGNOSES: 1. Pancreatitis felt secondary to hydrochlorothiazide, now resolved. 2. History of several recent episodes of anaphylaxis. 3. Elevated LFTs of uncertain etiology. 4. Diabetes. 5. Hypertension. Please see admission history and physical by Dr. Irene Stokes. 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 He also does have abdominal p ain. An abdominal CT noted pancreatic inflammation. He had an elevated lipase and elevated LFTs and they trended up. He had an abdominal ultrasound showing no evidence of biliary obstruction. He is status post cholecystectomy. His LFTs peaked at AST 1000, ALT 850, and then trended down to AST 200 and ALT 400 at the time of discharge. He does not drink alcohol. After initial treatment with steroids and Benadryl and H2 blockers the patient's signs of allergic re action had resolved. The potential allergen is not clear. He had been on an angiotensin receptor annia, which was discontinued out of concern for angioedema. He was switched to hydrochlorothiazide and about 10 days later he developed the aforementioned panc reatitis. It is notable the patient was not hypotensive while here, so it does not meet the definiti on of anaphylactic shock. The patient on the 3rd hospital day was given an oral challenge which he d id well. He was ambulating well, eating well, and anxious for discharge. He is therefore discharged . Hydrochlorothiazide was discontinued and he is advised to follow up with primary care physician ramon gaxiola blood pressure check. /[id number]/MODL
--- NOTE | 2018-01-05 16:10 | ASMTCMCOM ---
CM Note CM Note Notes: Pt medically stable for d/c, no CM d/c needs identified. Date Signed: 01/05/2018 04:09 PM Electronically Signed By:ACE Faulkner
--- NOTE | 2018-01-05 16:10 | ASMTLACE ---
LACE Length of stay for Answers: 2 days current admission Acuity / Level of Answers: Yes Care: Did the patient have an inpatient admission? Comorbidities - select Answers: Other Notes: anaphylaxis all that apply # of Emergency department Answers: 1-2 visits in the last 6 months Score: 7 Date Signed: 01/05/2018 04:09 PM Electronically Signed By:ACE Faulkner
== END 2018-01-05 16:59 | disposition home or self-care (01) | DRG 439 ==
LOC: CED 17:29 → CEDHOLD 20:20 → F2N 23:41 → OBSVTOIN 01-04 07:26 → F3N 01-04 17:20
PROVIDERS: ADMIT Student in an Organized Health Care Education/Training Program; ATTEND Student in an Organized Health Care Education/Training Program
DX: K85.90 Acute pancreatitis without necrosis or infection, unspecified (principal); T50.2X5A Adverse effect of carbonic-anhydrase inhibitors, benzothiadiazides and other diuretics, initial encounter; T78.04XA Anaphylactic reaction due to fruits and vegetables, initial encounter; R79.89 Other specified abnormal findings of blood chemistry; I10 Essential (primary) hypertension; J45.909 Unspecified asthma, uncomplicated; E11.9 Type 2 diabetes mellitus without complications; E78.5 Hyperlipidemia, unspecified; N40.0 Benign prostatic hyperplasia without lower urinary tract symptoms; Z86.73 Personal history of transient ischemic attack (TIA), and cerebral infarction without residual deficits; Z85.46 Personal history of malignant neoplasm of prostate
CPT/HCPCS: 74177-PO; 80053-PO; 80076-PO; 82150-PO; 82435-PO; 82565-PO; 84132-PO; 84295-PO; 84484-PO; 84520-PO; 85014-PO; 96374; G0378; J1170; J1815; J2405; J2930; Q9967

== ENCOUNTER 2018-01-06 20:53 | Observation (INO) | payer OTHER, MEDICAID ==
[2018-01-06] MEDS ORDERED: NS 1,000 ML IV ONE (21:15)
[2018-01-06] MEDS ORDERED: HYDROmorphONE/DILAUDID 2 MG/ML INJ IVP ONE (21:15)
[2018-01-06] MEDS ORDERED: IPRATROPIUM/ALBUTEROL 3 ML DEYVIAL IH ONE (21:16)
--- NOTE | 2018-01-06 21:39 | EDPHY ---
H & P Stated Complaint: fever, abd pain Time Seen by Provider: 01/06/18 21:09 HPI/ROS: CHIEF COMPLAINT: Abdominal pain, fever HISTORY OF PRESENT ILLNESS: The patient is an 82-year-old man who comes to the emergency department with his family complaining of abdominal pain and fever of 101 at home. He was discharged today after an admission for pancreatitis that was thought to be due to hydrochlorothiazide. I saw him 3 days ago for an anaphylactic reaction and admitted for the pancreatitis and elevated LFTs. He is not having any rash or shortness of breath or swelling now. He does complain of epigastric pain with inspiration and states that it is hard to breathe. He denies chest pain. No vomiting. No diarrhea. His daughter states that he was not adhering to his diet and had corn at home and soon thereafter developed worsening epigastric pain and fever. REVIEW OF SYSTEMS: Constitutional: denies: chills, fever, recent illness, recent injury EENTM: denies: blurred vision, double vision, nose congestion Respiratory: denies: cough, shortness of breath Cardiac: denies: chest pain, irregular heart rate, lightheadedness, palpitations Gastrointestinal/Abdominal: See HPI Genitourinary: denies: dysuria, frequency, hematuria, pain Musculoskeletal: denies: joint pain, muscle pain Skin: denies: lesions, rash, jaundice, bruising Neurological: denies: headache, numbness, paresthesia, tingling, dizziness, weakness Hematologic/Lymphatic: denies: blood clots, easy bleeding, easy bruising Immunologic/allergic: denies: HIV/AIDS, transplant EXAM: GENERAL: Well-appearing, well-nourished and in no acute distress. HEAD: Atraumatic, normocephalic. EYES: Pupils equal round and reactive to light, extraocular movements intact, sclera anicteric, conjunctiva are normal. ENT: TMs normal, nares patent, oropharynx clear without exudates. Moist mucous membranes. NECK: Normal range of motion, supple without lymphadenopathy or JVD. LUNGS: Rapid breathing with mild wheezes HEART: Regular rate and rhythm without murmurs, rubs or gallops. ABDOMEN: Epigastric pain and tenderness. BACK: No CVA tenderness, no spinal tenderness, step-offs or deformities EXTREMITIES: Normal range of motion, no pitting or edema. No clubbing or cyanosis. NEUROLOGICAL: Cranial nerves II through XII grossly intact. Normal speech, normal gait. 5/5 strength, normal movement in all extremities, normal sensation PSYCH: Normal mood, normal affect. SKIN: Warm, dry, normal turgor, no visible rashes or lesions. No r urticaria Source: Patient Exam Limitations: No limitations - Medical/Surgical History Hx Asthma: Yes Hx Chronic Respiratory Disease: No Hx Diabetes: Yes Hx Cardiac Disease: No Hx Renal Disease: No Hx Cirrhosis: No Hx Alcoholism: No Hx HIV/AIDS: No Hx Splenectomy or Spleen Trauma: No Other PMH: HTN,prostate CA,left bna,abnormal ecg,asthma,diabetes type 2, enlarged ascending aorta,cholesterol,vitamin d deficency. Cholecystectomy. [facility] Jan 2017. pancreatitis - Family History Significant Family History: No pertinent family hx - Social History Smoking Status: Never smoked Alcohol Use: Sober Drug Use: None Constitutional: Initial Vital Signs Temperature (C) 36.9 C 01/06/18 20:58 Heart Rate 83 01/06/18 20:58 Respiratory Rate 20 01/06/18 20:58 Blood Pressure 137/83 H 01/06/18 20:58 O2 Sat (%) 90 L 01/06/18 20:58 O2 Delivery Mode Nasal Cannula O2 (L/minute) 2 Allergies/Adverse Reactions: hydrochlorothiazide Allergy (Severe, Verified 01/04/18 15:37) Other-Enter Comments dronabinol [From Marinol] Allergy (Verified 01/06/18 20:57) losartan [From Cozaar] Allergy (Verified 01/06/18 20:58) metal Allergy (Uncoded 01/03/18 19:14) Home Medications: Medication Instructions Recorded metFORMIN HCL [Glucophage 500 mg 500 mg PO DAILY18 01/23/11 (*)] Albuterol [Proventil Inhaler HFA 1 puffs IH Q6HRS PRN 11/01/15 (*)] Simvastatin [Zocor] 40 mg PO HS 11/01/15 metFORMIN HCL [Glucophage 1000 mg] 1,000 mg PO DAILY 01/27/17 traMADol [Ultram 50 mg (*)] 50 mg PO Q6 PRN 02/06/17 Cholecalciferol Vit D3 [Vitamin D3 1,000 units PO DAILY 01/04/18 (*)] Escitalopram Oxalate [Lexapro] 20 mg PO DAILY 01/04/18 Famotidine [Pepcid 20 MG (*)] 20 mg PO DAILY 01/04/18 Fluticasone Hfa 110 Mcg [Flovent 1 puffs IH BID 01/04/18 110 MCG Hfa MDI (*)] diphenhydrAMINE [Benadryl 25 MG 25 mg PO HS PRN 01/04/18 (*)] Medical Decision Making - Diagnostics EKG Interpretation: An EKG obtained and was read and documented in trace view. Please see trace view for full reading and report. Sinus rhythm, no acute ischemic changes Imaging: I viewed and interpreted images myself (No acute disease) ED Course/Re-evaluation: The patient's enzymes are improved but still elevated. The fevers concerning however. I recommended admission and family agrees. 10:30 p.m. I discussed the case with Dr. Almaraz who will admit Differential Diagnosis: Partial list of the Differential diagnosis considered include but were not limited to; epigastric pain, fever, pancreatitis, atelectasis, pneumonia and although unlikely based on the history and physical exam, I also considered PE, abscess. - Data Points Laboratory Results: Laboratory Results 01/06/18 21:35 01/06/18 21:35 Medications Given: Acetaminophen (Tylenol) 650 mg PO Q4HRS PRN PRN Reason: Pain, Mild/Fever, Can Take PO Stop: 07/05/18 22:29 Last Admin: 01/08/18 03:16 Dose: 650 mg Albuterol (Proventil Inhaler) 1 puffs IH Q6HRS PRN PRN Reason: Short of Breath/Dyspnea Stop: 07/06/18 13:52 Last Admin: 01/07/18 21:31 Dose: 1 puffs Fluticasone Propionate (Flovent Hfa) 1 puffs IH BID DEREK Stop: 07/06/18 20:59 Last Admin: 01/07/18 21:32 Dose: 1 puffs Sodium Chloride (Ns) 1,000 mls @ 125 mls/hr IV CONT DEREK Stop: 07/05/18 22:29 Last Admin: 01/08/18 03:17 Dose: 1,000 mls Tramadol HCl (Ultram) 50 mg PO Q6 PRN PRN Reason: Pain, Breakthrough Stop: 07/06/18 13:52 Last Admin: 01/07/18 21:55 Dose: 50 mg Discontinued Medications Albuterol/Ipratropium (Duoneb) 3 ml IH EDNOW ONE Stop: 01/06/18 21:17 Last Admin: 01/06/18 21:28 Dose: 3 ml Hydromorphone HCl (Dilaudid) 1 mg IVP EDNOW ONE Stop: 01/06/18 21:16 Last Admin: 01/06/18 21:31 Dose: 1 mg Sodium Chloride (Ns) 1,000 mls @ 0 mls/hr IV EDNOW ONE; Wide Open PRN Reason: Protocol Stop: 01/06/18 21:16 Last Admin: 01/06/18 21:31 Dose: 1,000 mls Ibuprofen (Motrin) 800 mg PO EDNOW ONE Stop: 01/06/18 22:25 Last Admin: 01/06/18 22:27 Dose: 800 mg Departure - Departure Disposition: [facility] Acute Clinical Impression: Pancreatitis Qualifiers: Chronicity: acute Pancreatitis type: drug induced Acute pancreatitis complication: unspecified Qualified Code(s): K85.30 - Drug induced acute pancreatitis without necrosis or infection Fever Qualifiers: Fever type: unspecified Qualified Code(s): R50.9 - Fever, unspecified Condition: Fair
--- NOTE | 2018-01-06 22:06 | CPEKG ---
Heart Rate: 80 RR Interval: 750 P-R Interval: 160 QRSD Interval: 88 QT Interval: 364 QTC Interval: 420 P [place]: 33 QRS [place]: 22 T Wave [place]: 0 EKG Severity - BORDERLINE ECG - EKG Impression: SINUS RHYTHM EKG Impression: ATRIAL PREMATURE COMPLEX EKG Impression: LVH BY VOLTAGE EKG Impression: Similar to previous Electronically Signed By: Zach Arreguin 06-Jan-2018 22:10:20
[2018-01-06] MEDS ORDERED: IBUPROFEN 800 MG TAB PO ONE (22:24)
[2018-01-06 22:29] LABS: PLATELET COUNT 91 10^3/uL (150-400)
[2018-01-06] MEDS ORDERED: ONDANSETRON 4 MG/2 ML VIAL IVP PRN (22:30)
[2018-01-06] MEDS ORDERED: ONDANSETRON DISINTEGRATING 4 MG TAB PO PRN (22:30)
--- NOTE | 2018-01-06 23:47 | PDGENHP ---
History and Physical - Chief Complaint Abdominal pain, fever - History of Present Illness 82 yo M w/ HTN, pre-DM, and prostate CA who was recently discharged after treatment for HCTZ induced pancreatitis presents with abdominal pain and fever. Translation was provided by his granddaughter who denied senior health educator services. Patient was discharged yesterday after his pancreatitis symptoms improved. He went home and did well until today. He had a meal composed of boiled meat, rice, and corn. Shortly after this he developed 10/10 epi-gastric pain. He then developed a fever. He denies infectious symptoms such as SOB, cough, and diarrhea. Evaluation in the ED mostly reassuring with normal WBC and improving LFTs. His CXR was unchanged from 3 days ago. He is now feeling better with only minimal pain and his fever has resolved. Case discussed with ED physician Dr Arreguin. Previous records reviewed including D/C summary by Dr. Douglas dated 01/05/18. History Information - Allergies/Home Medication List Allergies/Adverse Reactions: hydrochlorothiazide Allergy (Severe, Verified 01/04/18 15:37) Other-Enter Comments dronabinol [From Marinol] Allergy (Verified 01/06/18 20:57) losartan [From Cozaar] Allergy (Verified 01/06/18 20:58) metal Allergy (Uncoded 01/03/18 19:14) Home Medications: metFORMIN HCL [Glucophage 500 mg (*)] 500 mg PO DAILY18 01/23/11 [Last Taken ] Albuterol [Proventil Inhaler HFA (*)] 1 puffs IH Q6HRS PRN 11/01/15 [Last Taken Unknown] Simvastatin [Zocor] 40 mg PO HS 11/01/15 [Last Taken 01/03/18] Capsaicin 0.025% 1 lloyd TP QID PRN 01/27/17 [Last Taken Unknown] metFORMIN HCL [Glucophage 1000 mg] 1,000 mg PO DAILY 01/27/17 [Last Taken ] traMADol [Ultram 50 mg (*)] 50 mg PO Q6 PRN 02/06/17 [Last Taken 12/28/17] Cholecalciferol Vit D3 [Vitamin D3 (*)] 1,000 units PO DAILY 01/04/18 [Last Taken 01/03/18] Escitalopram Oxalate [Lexapro] 20 mg PO DAILY 01/04/18 [Last Taken 01/03/18] Famotidine [Pepcid 20 MG (*)] 20 mg PO DAILY 01/04/18 [Last Taken 01/03/18] Fluticasone Hfa 110 Mcg [Flovent 110 MCG Hfa MDI (*)] 1 puffs IH BID 01/04/18 [ Last Taken Unknown] diphenhydrAMINE [Benadryl 25 MG (*)] 25 mg PO HS PRN 01/04/18 [Last Taken ] I have personally reviewed and updated: family history, medical history - Past Medical History Additional medical history: HTN, HLD, pre DM, asthma, prostate cancer, BPH, intracranial hemorrhage 2017, kidney stone, headaches, anaphylaxis with history of anaphylactic shock in hospitalizations . 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 Patient has a prosthetic and does not normally require any assisted devices for ambulation. Daughter reports that patient understands French but has some difficulties responding due to language barrier. Cor status-discussed with the patient's daughter at bedside at this time patient will remain a full code and she will check with the family. Patient's last hospital stay in 2016 noted that he was a DNR DNI. His most recent H and Ps from Review of Systems Review of Systems: ROS: 10pt was reviewed & negative except for what was stated in HPI & below Physical Exam Physical Exam: Temp Pulse Resp BP Pulse Ox 37.2 C 74 16 129/79 H 95 01/06/18 23:11 01/06/18 23:11 01/06/18 23:11 01/06/18 23:11 01/06/18 23:11 O2 (L/minute) 4 Constitutional: no apparent distress, appears nourished Eyes: PERRL, EOMI Ears, Nose, Mouth, Throat: moist mucous membranes, no oral mucosal ulcers Cardiovascular: regular rate and rhythym, no murmur, rub, or gallop Respiratory: no respiratory distress, clear to auscultation Gastrointestinal: normoactive bowel sounds, tenderness (Epi-gastric), No guarding, No rebound, No distension Skin: warm, normal color Musculoskeletal: full muscle strength, no muscle tenderness Neurologic: AAOx3, CN II-XII Intact Psychiatric: interacting appropriately, not anxious Lab Data & Imaging Review 01/06/18 21:35 01/06/18 21:35 WBC 5.34 10^3/uL (3.80-9.50) 01/06/18 21:35 RBC 4.02 10^6/uL (4.40-6.38) L 01/06/18 21:35 Hgb 12.4 g/dL (13.7-17.5) L 01/06/18 21:35 Hct 37.2 % (40.0-51.0) L 01/06/18 21:35 MCV 92.5 fL (81.5-99.8) 01/06/18 21:35 MCH 30.8 pg (27.9-34.1) 01/06/18 21:35 MCHC 33.3 g/dL (32.4-36.7) 01/06/18 21:35 RDW 14.4 % (11.5-15.2) 01/06/18 21:35 Plt Count 91 10^3/uL (150-400) L 01/06/18 21:35 MPV 9.8 fL (8.7-11.7) 01/06/18 21:35 Neut % (Auto) 81.7 % (39.3-74.2) H 01/06/18 21: Lymph % (Auto) 9.6 % (15.0-45.0) L 01/06/18 21:35 [place] % (Auto) 7.9 % (4.5-13.0) 01/06/18 21:35 Eos % (Auto) 0.0 % (0.6-7.6) L 01/06/18 21:35 Baso % (Auto) 0.2 % (0.3-1.7) L 01/06/18 21:35 Nucleat RBC Rel Count 0.0 % (0.0-0.2) 01/06/18 21:35 Absolute Neuts (auto) 4.36 10^3/uL (1.70-6.50) 01/06/18 21:35 Absolute Lymphs (auto) 0.51 10^3/uL (1.00-3.00) L 01/06/18 21:35 Absolute Monos (auto) 0.42 10^3/uL (0.30-0.80) 01/06/18 21:35 Absolute Eos (auto) 0.00 10^3/uL (0.03-0.40) L 01/06/18 21:35 Absolute Basos (auto) 0.01 10^3/uL (0.02-0.10) L 01/06/18 21:35 Absolute Nucleated RBC 0.00 10^3/uL (0-0.01) 01/06/18 21:35 Immature Gran % 0.6 % (0.0-1.1) 01/06/18 21:35 Immature Gran # 0.03 10^3/uL (0.00-0.10) 01/06/18 21:35 RBC/WBC/PLT Morphology TNP 01/06/18 21:35 Platelet Estimate TNP 01/06/18 21:35 VBG Lactic Acid 1.1 mmol/L (0.7-2.1) 01/06/18 22:15 Sodium 136 mEq/L (135-145) 01/06/18 21:35 Potassium 4.3 mEq/L (3.3-5.0) 01/06/18 21:35 Chloride 101 mEq/L (97-110) 01/06/18 21:35 Carbon Dioxide 30 mEq/l (22-31) 01/06/18 21:35 Anion Gap 5 mEq/L (8-16) L 01/06/18 21:35 BUN 18 mg/dL (7-23) 01/06/18 21:35 Creatinine 0.8 mg/dL (0.7-1.3) 01/06/18 21:35 Estimated GFR > 60 01/06/18 21:35 Glucose 87 mg/dL (70-100) 01/06/18 21:35 Calcium 8.7 mg/dL (8.5-10.4) 01/06/18 21:35 Total Bilirubin 1.2 mg/dL (0.1-1.4) 01/06/18 21:35 Conjugated Bilirubin 0.1 mg/dL (0.0-0.5) 01/06/18 21:35 Unconjugated Bilirubin 1.1 mg/dL (0.0-1.1) 01/06/18 21:35 AST 60 IU/L (17-59) H 01/06/18 21:35 ALT 259 IU/L (21-72) H 01/06/18 21:35 Alkaline Phosphatase 75 IU/L (38-126) 01/06/18 21:35 Total Protein 6.5 g/dL (6.3-8.2) 01/06/18 21:35 Albumin 3.6 g/dL (3.5-5.0) 01/06/18 21:35 Lipase 832 IU/L (23-300) H 01/06/18 21:35 Imaging Review: Imaging Impressions Chest X-Ray 01/06/18 21:16 Impression: 1. Left basilar atelectasis unchanged since 3 days prior. 2. No effusion or new airspace consolidation. Visualized and Interpreted EKG results: Yes EKG Interpretation: Positive for: normal sinsus rhythm Assessment & Plan Assessment: 82 yo M w/ HTN, pre-DM, and prostate CA who was recently discharged after treatment for HCTZ induced pancreatitis presents with abdominal pain and fever. Plan: 1. Fever - I suspect this is related to ongoing pancreatic inflammation. He denies any localizing symptoms aside from abdominal pain. CXR unchanged from 3 days ago without signs of infection(personally interpreted). - Blood cultures, UA to complete basic infectious work-up - Will observe off of antibiotics - Low threshold for abdominal imaging and antibiotics if worsening 2. Pancreatitis - Presumed HCTZ induced, it seems this flared after advancing diet quickly post discharge. - Reinstate bowel rest: NPO, ADAT - mIVF, pain control, anti-emetics 3. HTN - HCTZ discontinued during recent admission due to pancreatitis. 4. Pre-DM - Will observe without treatment for now noting NPO 5. Hx prostate CA Diet - NPO, ADAT Code - Full Ppx - SCDs Dispo - Admit under observation status
[2018-01-07] MEDS: NS 1,000 ML IV SCH ×3 (00:05→15:19)
[2018-01-07 10:28] LABS: PLATELET COUNT 80 10^3/uL (150-400)
[2018-01-07] MEDS: ACETAMINOPHEN 325 MG TAB PO PRN (10:58)
--- NOTE | 2018-01-07 12:05 | ASMTCMCOM ---
CM Note CM Note Notes: 82yr old male D/C from [facility] 01/05 same dx= Abdominal pain, fever. Patient has a Hx of pre DM, Prostate CA, Tx for HCTZ induced pancreatitis, HTN, HLD, ICH, Asthma, L LL amputation. CM to follow. Paient and family usually resist going to SNF or using HC services. CM to follow in case needs change. Date Signed: 01/07/2018 12:05 PM Electronically Signed By:Ariana Collazo LCSW
[2018-01-07] MEDS ORDERED: diphenhydrAMINE 25 MG CAP PO PRN (13:53)
--- NOTE | 2018-01-07 14:13 | HOSPPROG ---
Hospitalist Progress Note Assessment/Plan: 82 yo M w recent anaphylaxis, pancreatitis here w abd pain abd pain: reasonably attributed to recurrent/continued pancreatitis bowel rest ivf pain meds initial cause presumed to be hctz abnormal lft's': improving uncertain etiology no biliary obstruction on imaging last admit dm: hold metformin follow given normalish blood sugars proph: lmwh htn: normal to modestly elevated follow while here anaphylaxis: uncertain cause, not happening here dispo: obs for now Subjective: cxr w no infiltrate (interp by me) Objective: Vital Signs Temp Pulse Resp BP Pulse Ox 37.3 C 64 16 149/80 H 92 01/07/18 11:05 01/07/18 11:05 01/07/18 11:05 01/07/18 11:05 01/07/18 11:05 Laboratory Results 01/07/18 10:15 01/07/18 10:15 01/06/18 01/07/18 01/08/18 05:59 05:59 05:59 Intake Total 1000 706 Output Total 300 Balance 700 706 - Physical Exam Constitutional: no apparent distress, appears nourished Eyes: PERRL, anicteric sclera Ears, Nose, Mouth, Throat: moist mucous membranes, hearing normal Cardiovascular: regular rate and rhythym, no murmur, rub, or gallop, No tachycardia Respiratory: no respiratory distress, no rales or rhonchi Gastrointestinal: normoactive bowel sounds, soft, non-tender abdomen, No guarding, No rebound Genitourinary: no bladder fullness, No rdz in urethra Skin: warm, normal color Musculoskeletal: full muscle strength, no muscle tenderness Neurologic: AAOx3, sensation intact bilaterally Psychiatric: interacting appropriately ICD10 Worksheet Patient Problems: Problems Problem Status Onset Fever Acute Pancreatitis Acute Acute anaphylaxis Acute Cerebral hemorrhage, nontraumatic Acute Confusion Acute Hypertension Acute
[2018-01-07] MEDS: ALBUTEROL 60 PUFFS/8 GM MDI IH PRN ×2 (15:12→21:31)
[2018-01-07] MEDS: traMADol 50 MG TAB PO PRN ×2 (15:16→21:55)
[2018-01-07] MEDS: FLUTICASONE HFA 110 MCG MDI IH SCH (21:32)
[2018-01-08] MEDS: ACETAMINOPHEN 325 MG TAB PO PRN ×2 (03:16→17:14)
[2018-01-08] MEDS: NS 1,000 ML IV SCH ×2 (03:17→13:04)
[2018-01-08] MEDS: FLUTICASONE HFA 110 MCG MDI IH SCH (08:55)
[2018-01-08] MEDS ORDERED: ESCITALOPRAM OXALATE 10 MG TAB PO SCH (09:00)
[2018-01-08] MEDS ORDERED: FAMOTIDINE 20 MG TAB PO SCH (09:00)
--- NOTE | 2018-01-08 13:37 | HOSPPROG ---
Hospitalist Progress Note Assessment/Plan: 82 yo M w recent anaphylaxis, pancreatitis here w abd pain abd pain: reasonably attributed to recurrent/continued pancreatitis bowel rest ivf pain meds initial cause presumed to be hctz 12/29: continue NPO overnight, trial clears 01/09 abnormal lft's': improving uncertain etiology no biliary obstruction on imaging last admit repeat 01/09 dm: hold metformin follow given normalish blood sugars proph: lmwh htn: normal to modestly elevated follow while here anaphylaxis: uncertain cause, not happening here dispo: obs for now Subjective: not hungry Objective: Vital Signs Temp Pulse Resp BP Pulse Ox 36.9 C 74 18 148/91 H 92 01/08/18 08:00 01/08/18 08:57 01/08/18 08:00 01/08/18 08:00 01/08/18 08:57 Laboratory Results 01/07/18 10:15 01/07/18 10:15 01/07/18 01/08/18 01/09/18 05:59 05:59 05:59 Intake Total 1000 1872 Output Total 300 450 Balance 700 1872 -450 - Physical Exam Constitutional: no apparent distress, appears nourished Eyes: PERRL, anicteric sclera Ears, Nose, Mouth, Throat: moist mucous membranes, hearing normal Cardiovascular: regular rate and rhythym, no murmur, rub, or gallop Respiratory: no respiratory distress, no rales or rhonchi Gastrointestinal: other (bs hypoactive but present. no rebond or guarding) Genitourinary: no bladder fullness, No rdz in urethra Skin: warm, normal color Musculoskeletal: full muscle strength, no muscle tenderness Neurologic: AAOx3, sensation intact bilaterally ICD10 Worksheet Patient Problems: Problems Problem Status Onset Fever Acute Pancreatitis Acute Acute anaphylaxis Acute Cerebral hemorrhage, nontraumatic Acute Confusion Acute Hypertension Acute
--- NOTE | 2018-01-08 16:26 | ASMTDCNOTE ---
Case Management Discharge Discharge Order Complete? Answers: Yes Patient to Obtain Answers: via Family Medications Transportation Arranged Answers: Family/Friends EMTALA Complete Answers: No Case Management Transport Answers: No Form Complete Faxed Final Orders Answers: Yes Agency/Facility Transfer Answers: Yes Report Printed & Faxed to Receiving Agency Family Notified Answers: Yes Discharge Comments Notes: Pt is being discharged today. PT is recommending HC. CM met w/ pt and family for dispo planning. Wyatt, daughter in law reports that pt lives w/ her and her . Wyatt is pts caregiver. Wyatt would like to use [facility] for HC services. [facility] is able to accept and can start on Monday. Pts family is ok w/ this. confirmed address. Wyatt would like to be the person to contact. Her number is [phone]. CM available for changes. Plan: [facility], PT Date Signed: 01/08/2018 04:25 PM Electronically Signed By:AZYDA Felton
--- NOTE | 2018-01-08 16:28 | ASDISCHSUM ---
Discharge Information Plan Status:Home with Home Health Medically Cleared to Leave:01/08/2018 Discharge Date:01/08/2018 CM D/C Disposition: ADT D/C Disposition: Projected Discharge Date:01/08/2018 11:00 AM Transportation at D/C: Discharge Delay Reason: Follow-Up Date:01/08/2018 11:00 AM Discharge Slot: Final Diagnosis:Fever, Abd pain Placement Information Referral Type:*Home Health Care Services Referral ID:[id number] Provider Name:[facility] Care Address 1:[address] Address 2: City:[place] Selection Factors: State:[place] Patient Contact Information Contact Name:JESSICA Relationship:Daughter Address:[address] City:[facility] Phone: State/Zip Code:[place] [address] Email: Financial Information Financial Class:Medicare Advantage Plans Primary Plan Desc:[employer] [facility] [employer] Primary Plan Number:[id number] Secondary Plan Desc:MED[place] Secondary Plan Number:[id number] Assessment Information [facility] CM Progress Note CM Note CM Note Notes: 82yr old male D/C from [facility] 01/05 same dx= Abdominal pain, fever. Patient has a Hx of pre DM, Prostate CA, Tx for HCTZ induced pancreatitis, HTN, HLD, ICH, Asthma, L LL amputation. CM to follow. Paient and family usually resist going to SNF or using HC services. CM to follow in case needs change. Date Signed: 01/07/2018 12:05 PM Electronically Signed By:Ariana Collazo LCSW LACE LACE Length of stay for Answers: 2 days current admission Acuity / Level of Answers: No Care: Did the patient have an inpatient admission? Comorbidities - select Answers: Any tumor (including all that apply lymphoma or leukemia) Mild liver or renal disease Other Notes: Pancreatitis, HX L LL Amputation, HTN # of Emergency department Answers: 3-4 visits in the last 6 months Social determinants Answers: History of trauma (PTSD, child abuse, domestic violence, etc.) Score: 13 Date Signed: 01/08/2018 04:26 PM Electronically Signed By:ZAYDA Felton Case Management Discharge Plan Note Case Management Discharge Discharge Order Complete? Answers: Yes Patient to Obtain Answers: via Family Medications Transportation Arranged Answers: Family/Friends EMTALA Complete Answers: No Case Management Transport Answers: No Form Complete Faxed Final Orders Answers: Yes Agency/Facility Transfer Answers: Yes Report Printed & Faxed to Receiving Agency Family Notified Answers: Yes Discharge Comments Notes: Pt is being discharged today. PT is recommending HC. CM met w/ pt and family for dispo planning. Wyatt, daughter in law reports that pt lives w/ her and her . Wyatt is pts caregiver. Wyatt would like to use [facility] for HC services. [facility] is able to accept and can start on Monday. Pts family is ok w/ this. CM confirmed address. Wyatt would like to be the person to contact. Her number is [phone]. CM available for changes. Plan: [facility], PT Date Signed: 01/08/2018 04:25 PM Electronically Signed By:ZAYDA Felton Intervention Information
[2018-01-08 17:01] VITALS: BP 141/86
--- NOTE | 2018-01-11 08:22 | GDS ---
[f rep st] DISCHARGE SUMMARY DISCHARGE DIAGNOSES: 1. Recent episodes of anaphylaxis with uncertain precipitant, not present on this admission. 2. Pancreatitis, recurrent, secondary to hydrochlorothiazide. 3. Elevated liver function tests of uncertain etiology. 4. History of cholecystectomy. 5. Ureteral stents, cystoscopy. 6. Hypertension. 7. Hyperlipidemia. 8. Diabetes. 9. Asthma. 10. Prostate cancer. 11. BPH. 12. History of intracranial hemorrhage in 2017. HOSPITAL COURSE: Please see admission history and physical by Dr. Kayden Almaraz. I had blayne ashley discharged the patient from the hospital with an episode of pancreatitis. He had tolerated orals at that time. He re-presented on the evening of the with recurrent abdominal pain. At that ti me, his LFTs were improving with his AST of 68, an ALT of 200. His lipase was elevated and he was n. p.o. for about 30 hours. Ultimately, he became hungry and was fed and was discharged. His AST had peaked at 1000 on the and had trended down to 60. ALT had peaked at 826 and trended down to 200. He has not have signs of hepatic failure. Regarding his hypertension, he was again discharged off of any antihypertensives. He relatively norm otensive while there with plans to follow up with his outpatient. He had previously been discontinue d from an angiotensin receptor annia out of concerns that he had angioedema. /[id number]/MODL
== END 2018-01-08 18:10 | disposition home health service (06) ==
LOC: F3E 23:03
PROVIDERS: ADMIT Student in an Organized Health Care Education/Training Program; ATTEND Student in an Organized Health Care Education/Training Program
DX: K86.1 Other chronic pancreatitis (principal); R79.89 Other specified abnormal findings of blood chemistry; I10 Essential (primary) hypertension; E78.5 Hyperlipidemia, unspecified; E11.9 Type 2 diabetes mellitus without complications; J45.909 Unspecified asthma, uncomplicated; N40.0 Benign prostatic hyperplasia without lower urinary tract symptoms; E86.9 Volume depletion, unspecified; Z96.0 Presence of urogenital implants; Z90.49 Acquired absence of other specified parts of digestive tract; Z85.46 Personal history of malignant neoplasm of prostate; Z86.79 Personal history of other diseases of the circulatory system; Z87.892 Personal history of anaphylaxis
CPT/HCPCS: 71046; 93005; 96361; 96374; 97116; 97161; 99285; G0378; G8978; G8979; J1170

== ENCOUNTER → 2018-07-21 | Outpatient (CLI) | payer OTHER, MEDICAID | LOC: FIMAGING 09:13 | PROVIDERS: ATTEND Family Medicine | DX: I61.9 Nontraumatic intracerebral hemorrhage, unspecified (principal); Z86.73 Personal history of transient ischemic attack (TIA), and cerebral infarction without residual deficits ==

== ENCOUNTER 2018-11-27 08:17 | Emergency (ER) | payer OTHER, MEDICAID | END 2018-11-27 09:25 | disposition home or self-care (01) | LOC: CED 08:17 ==

== ENCOUNTER 2018-11-27 21:35 | Emergency (ER) | payer OTHER, MEDICAID | END 2018-11-27 22:12 | disposition home or self-care (01) | LOC: CED 21:35 ==